=== PATIENT | male | born 1950 | race Caucasian/White ===

== ENCOUNTER 2018-06-25 02:07 | Inpatient (IN) | payer MEDICARE ==
[2018-06-25] VITALS (70 sets, daily range): BP systolic 72–110; BP diastolic 44–72; Ht 172.7 cm; Wt 84.3 kg
[~2018-06-25] VITALS: Ht 172.7 cm; Wt 84.3 kg
[2018-06-25 02:45] LABS: BASOPHILS 0.1 % (0-2); EOSINOPHILS 0 % (0-7); HEMATOCRIT 29.7 % (42.0-54.0); HEMOGLOBIN 9.9 g/dL (13.5-17.5); IMMATURE GRANULOCYTES 0.5 % (0-5); MCH 33.4 pg (26.0-34.0); MCHC 33.3 g/dL (31.0-37.0); MCV 100.3 fL (80.0-100.0); MEAN PLATELET VOLUME 10.7 fL (7.4-10.4); MONOCYTES 6.2 % (2-11); NEUTROPHILS 85.2 % (40-80); PLATELET COUNT 93 10x3/uL (130-400); RBC 2.96 10x6/uL (4.20-6.10); RDW 22.2 % (11.5-14.5); WBC 10.2 10x3/uL (4.8-10.8)
[2018-06-25 02:53] LABS: INR 1.73 (0.85-1.17); PROTIME 19.6 SECONDS (11.6-15.0)
[2018-06-25 02:55] LABS: ALBUMIN 2.2 g/dL (3.4-5.0); ALKALINE PHOSPHATASE 66 U/L (46-116); ALT (SGPT) 124 U/L (10-68); BILIRUBIN - TOTAL 3.88 mg/dL (0.2-1.3); CALC OSMOLALITY 293 mosm/kg (275-300); CALCIUM 8.1 mg/dL (8.5-10.1); CARBON DIOXIDE 32.4 mmol/L (21.0-32.0); CHLORIDE - SERUM 97 mmol/L (98-107); CREATININE - SERUM 2.6 mg/dL (0.6-1.3); GLUCOSE 128 mg/dL (74-106); POTASSIUM - SERUM 3.4 mmol/L (3.5-5.1); PROTEIN - SERUM 5.6 g/dL (6.4-8.2); SODIUM 142 mmol/L (136-145); UREA NITROGEN 39 mg/dL (7-18); eGFR NON AFRICAN AMERICAN 26 mL/min (90-120)
[2018-06-25 03:04] LABS: PLATELET ESTIMATE DECREASED
[2018-06-25 03:14] LABS: CKMB 14.6 U/L (0.0-3.6); CREATINE KINASE 1826 UL (21-232)
[2018-06-25 05:36] LABS: HEMATOCRIT 28.3 % (42.0-54.0); HEMOGLOBIN 9.5 g/dL (13.5-17.5)
[2018-06-25 10:11] LABS: BASOPHILS 0.1 % (0-2); EOSINOPHILS 0 % (0-7); HEMOGLOBIN 9.5 g/dL (13.5-17.5); IMMATURE GRANULOCYTES 0.5 % (0-5); LYMPHOCYTES 13.1 % (15-50); MCH 33.7 pg (26.0-34.0); MCHC 33.9 g/dL (31.0-37.0); MCV 99.3 fL (80.0-100.0); MEAN PLATELET VOLUME 10.6 fL (7.4-10.4); MONOCYTES 8.1 % (2-11); NEUTROPHILS 78.2 % (40-80); PLATELET COUNT 93 10x3/uL (130-400); RBC 2.82 10x6/uL (4.20-6.10)
[2018-06-25 10:53] LABS: WBC 13.2 10x3/uL (4.8-10.8)
--- NOTE | 2018-06-25 19:56 | MORECARE ---
CASE MANAGEMENT DISCHARGE SUMMARY PATIENT: VARUN WEEKS UNIT: [id number] ADM DATE: 06/25/18 AGE: 67 : 51 SEX: M ROOM/BED: D.2303 AUTHOR: CHIARA SEE PHYSICIAN: REFERRING PHYSICIAN: SHANTHI ALICEA MD DATE OF SERVICE: 06/25/18 Discharge Plan Patient Name: VARUN WEEKS [facility] [facility] 1950 Planned Disposition: Home Anticipated Discharge Date: Discharge Date: Expected LOS: Initial Reviewer: [email or web address] Initial Review Date: 06/25/2018 Generated: 06/25/18 8:55 pm DCPIA - Discharge Planning Initial Assessment Updated by [email or web address]: Abena Marquez on 06/25/18 7:53 pm * Is the patient Alert and Oriented? Yes * How many steps to enter\exit or inside your home? * PCP NO PCP * Pharmacy [facility] * Preadmission Environment Home Alone * ADLs Independent * Equipment Walker * Other Equipment CANE * List name and contact numbers for known caregivers / representatives who currently or will assist patient after discharge: MASOOD WEEKS- EX- [phone] * Verbal permission to speak to the caregivers and representatives has been obtained from the patient. Yes * Community resources currently utilized None * Additional services required to return to the preadmission environment? No * Can the patient safely return to the preadmission environment? Yes * Has this patient been hospitalized within the prior 30 days at any hospital? No Patient Name: VARUN WEEKS Page 09742 at 195 All edits/amendments must be made on the electronic document DICTATION DATE: 06/25/181954 CARPENTER'S HELPER: ELODIA 06/25/181954 RPT#: [id number] DC DATE: STATUS: ADM IN [facility] [address] [place] [address] END OF REPORT
--- NOTE | 2018-06-25 20:02 | MORECARE ---
CASE MANAGEMENT DISCHARGE SUMMARY PATIENT: VARUN WEEKS UNIT: [id number] ADM DATE: 06/25/18 AGE: 67 : 51 SEX: M ROOM/BED: D.2303 AUTHOR: ESA,DOC PHYSICIAN: REFERRING PHYSICIAN: SHANTHI ALICEA MD DATE OF SERVICE: 06/25/18 Discharge Plan Patient Name: VARUN WEEKS Facility: [facility]:[place] : 1950 Planned Disposition: Home Anticipated Discharge Date: Discharge Date: Expected LOS: Initial Reviewer: [email or web address] Initial Review Date: 06/25/2018 Generated: 06/25/18 9:02 pm Comments DCP- Discharge Planning Updated by [email or web address]: Abena Marquez on 06/25/18 6:[address] Patient Name: VARUN WEEKS Admission Status: ER Accout number: [id number] Admission Date: 06-25-2018 : 1950 Admission Diagnosis: Attending: DEANNE, Current LOS: 1 Anticipated DC Date: Planned Disposition: Home Primary Insurance: MEDICARE A & B Discharge Planning Comments:CM met with patient and ex- (Masood) at bedside. Patient states he lives at home alone. He plans on returning to his home upon discharge. He states he feels safe at his home. He states he will have family drive him home upon discharge. Masood states that he may need to stay with her upon discharge and the patient is currently not agreeing. He denies any discharge needs at this time. CM will continue to follow and assist as needed with discharge planning / needs. Associate Field Service Engineer: Abena Marquez DCPIA - Discharge Planning Initial Assessment Updated by [email or web address]: Abena Marquez on 06/25/18 7:53 pm * Is the patient Alert and Oriented? Yes * How many steps to enter\exit or inside your home? * PCP NO PCP * Pharmacy [facility] * Preadmission Environment Home Alone * ADLs Independent * Equipment Walker * Other Equipment CANE * List name and contact numbers for known caregivers / representatives who currently or will assist patient after discharge: MASOOD WEEKS- EX- [phone] * Verbal permission to speak to the caregivers and representatives has been obtained from the patient. Yes * Community resources currently utilized None * Additional services required to return to the preadmission environment? No * Can the patient safely return to the preadmission environment? Yes * Has this patient been hospitalized within the prior 30 days at any hospital? No Last DP export: 06/25/18 6:55 pm Patient Name: VARUN WEEKS Page 58759 at 2002 All edits/amendments must be made on the electronic document DICTATION DATE: 06/25/182000 COMPUTER SYSTEM VALIDATION SPECIALIST: ELODIA 06/25/182000 RPT#: [id number] DC DATE: STATUS: ADM IN [facility] [address] [place] [address] END OF REPORT
[2018-06-25 23:01] LABS: % SATURATION 92 % (15-55); IRON 89 ug/dl (35-150); TOTAL IRON BIND CAPACITY 96 ug/dl (260-445)
[2018-06-25 23:02] LABS: UNSAT IRON BIND CAPACITY 7 ug/dl (150-375)
[2018-06-26] VITALS (29 sets, daily range): BP systolic 94–148; BP diastolic 47–88
[2018-06-26 04:53] LABS: BASOPHILS 0.2 % (0-2); EOSINOPHILS 1.1 % (0-7); HEMATOCRIT 23.5 % (42.0-54.0); HEMOGLOBIN 7.9 g/dL (13.5-17.5); IMMATURE GRANULOCYTES 0.5 % (0-5); LYMPHOCYTES 16.7 % (15-50); MCH 33.3 pg (26.0-34.0); MCHC 33.6 g/dL (31.0-37.0); MCV 99.2 fL (80.0-100.0); MEAN PLATELET VOLUME 10.6 fL (7.4-10.4); NEUTROPHILS 73.5 % (40-80); PLATELET COUNT 77 10x3/uL (130-400); RBC 2.37 10x6/uL (4.20-6.10)
[2018-06-26 05:00] LABS: INR 1.59 (0.85-1.17); PROTIME 18.4 SECONDS (11.6-15.0)
[2018-06-26 05:03] LABS: WBC 5.5 10x3/uL (4.8-10.8)
[2018-06-26 05:36] LABS: ALBUMIN 2.1 g/dL (3.4-5.0); ALKALINE PHOSPHATASE 53 U/L (46-116); AMYLASE - SERUM 44 U/L (25-115); CALCIUM 7.1 mg/dL (8.5-10.1); CARBON DIOXIDE 29.8 mmol/L (21.0-32.0); CHLORIDE - SERUM 106 mmol/L (98-107); CKMB 2.9 U/L (0.0-3.6); LIPASE 219 U/L (73-393); PRE-ALBUMIN 11.5 mg/dL (18.0-35.7); PROTEIN - SERUM 5.1 g/dL (6.4-8.2); SODIUM 144 mmol/L (136-145); UREA NITROGEN 36 mg/dL (7-18)
[2018-06-26 05:38] LABS: ALT (SGPT) 193 U/L (10-68); CALC OSMOLALITY 293 mosm/kg (275-300); CREATINE KINASE 754 UL (21-232); CREATININE - SERUM 1.1 mg/dL (0.6-1.3); GLUCOSE 77 mg/dL (74-106); PHOSPHOROUS 1.4 mg/dL (2.5-4.9); POTASSIUM - SERUM 2.8 mmol/L (3.5-5.1); eGFR NON AFRICAN AMERICAN 71 mL/min (90-120)
[2018-06-26 15:35] LABS: HEMATOCRIT 30.7 % (42.0-54.0); HEMOGLOBIN 10.3 g/dL (13.5-17.5)
[2018-06-26 16:06] LABS: POTASSIUM - SERUM 3.4 mmol/L (3.5-5.1)
[2018-06-26 16:07] LABS: PHOSPHOROUS 1.3 mg/dL (2.5-4.9)
[2018-06-26 23:44] LABS: HEMATOCRIT 31.4 % (42.0-54.0); HEMOGLOBIN 10.7 g/dL (13.5-17.5)
[2018-06-27] VITALS (24 sets, daily range): BP systolic 17–133; BP diastolic 56–91
[2018-06-27 04:32] LABS: BASOPHILS 0 % (0-2); EOSINOPHILS 0.3 % (0-7); HEMATOCRIT 30.3 % (42.0-54.0); HEMOGLOBIN 10.1 g/dL (13.5-17.5); IMMATURE GRANULOCYTES 1.4 % (0-5); LYMPHOCYTES 11.4 % (15-50); MCH 31.2 pg (26.0-34.0); MCHC 33.3 g/dL (31.0-37.0); MEAN PLATELET VOLUME 10.3 fL (7.4-10.4); MONOCYTES 8.3 % (2-11); NEUTROPHILS 78.6 % (40-80); RDW 27.2 % (11.5-14.5)
[2018-06-27 04:53] LABS: MCV 93.5 fL (80.0-100.0); PLATELET COUNT 93 10x3/uL (130-400); RBC 3.24 10x6/uL (4.20-6.10); WBC 3.5 10x3/uL (4.8-10.8)
[2018-06-27 04:57] LABS: INR 1.41 (0.85-1.17); PROTIME 16.7 SECONDS (11.6-15.0)
[2018-06-27 05:22] LABS: ALBUMIN 2.4 g/dL (3.4-5.0); ALKALINE PHOSPHATASE 70 U/L (46-116); ALT (SGPT) 185 U/L (10-68); BILIRUBIN - TOTAL 1.79 mg/dL (0.2-1.3); CARBON DIOXIDE 24.7 mmol/L (21.0-32.0); CHLORIDE - SERUM 109 mmol/L (98-107); CKMB 1.5 U/L (0.0-3.6); POTASSIUM - SERUM 3.3 mmol/L (3.5-5.1); SODIUM 145 mmol/L (136-145)
[2018-06-27 05:25] LABS: CALC OSMOLALITY 293 mosm/kg (275-300); CALCIUM 6.9 mg/dL (8.5-10.1); CREATINE KINASE 313 UL (21-232); CREATININE - SERUM 0.8 mg/dL (0.6-1.3); GLUCOSE 127 mg/dL (74-106); MAGNESIUM - SERUM 2.6 mg/dL (1.8-2.4); PHOSPHOROUS 2.4 mg/dL (2.5-4.9); UREA NITROGEN 20 mg/dL (7-18); eGFR NON AFRICAN AMERICAN > 90 mL/min (90-120)
[2018-06-27 05:26] LABS: PLATELET ESTIMATE DECREASED
[2018-06-27 09:17] LABS: FOLATE (FOLIC ACID) - SERUM 15.3 ng/mL (>3.0)
[2018-06-27 11:19] LABS: HEPATITIS C ANTIBODY <0.1 S/CO RAT (0.0-0.9)
[2018-06-27 11:41] LABS: UDS - AMPHET NEGATIVE QUAL (NEGATIVE); UDS - BARB NEGATIVE QUAL (NEGATIVE); UDS - BENZO POSITIVE QUAL (NEGATIVE); UDS - COCAINE NEGATIVE QUAL (NEGATIVE); UDS - OPIATE NEGATIVE QUAL (NEGATIVE); UDS - PCP NEGATIVE QUAL (NEGATIVE); UDS - THC NEGATIVE QUAL (NEGATIVE)
[2018-06-27 12:09] LABS: APPEARANCE HAZY (CLEAR); BACTERIA FEW /hpf (NONE SEEN); BILIRUBIN NEGATIVE (NEGATIVE); COLOR DK YELLOW (YELLOW); EPITHELIAL CELLS 0-5 /hpf (0-5); GLUCOSE 250 mg/dL (NEGATIVE); KETONE MODERATE mg/dL (NEGATIVE); MUCUS <1+ /lpf (NONE SEEN); NITRITE NEGATIVE (NEGATIVE); PROTEIN TRACE mg/dL (NEGATIVE); RED CELLS - URINE 0-5 /hpf (0-5); WHITE CELLS - URINE 0-5 /hpf (0-5)
[2018-06-28] VITALS (23 sets, daily range): BP systolic 93–135; BP diastolic 55–111
[2018-06-28 03:23] LABS: BASOPHILS 0.2 % (0-2); EOSINOPHILS 2.1 % (0-7); HEMATOCRIT 31.5 % (42.0-54.0); HEMOGLOBIN 10.6 g/dL (13.5-17.5); IMMATURE GRANULOCYTES 1.3 % (0-5); LYMPHOCYTES 12.5 % (15-50); MCH 31.2 pg (26.0-34.0); MCHC 33.7 g/dL (31.0-37.0); MCV 92.6 fL (80.0-100.0); MEAN PLATELET VOLUME 10.1 fL (7.4-10.4); MONOCYTES 13.1 % (2-11); NEUTROPHILS 70.8 % (40-80); PLATELET COUNT 95 10x3/uL (130-400); RDW 26.4 % (11.5-14.5)
[2018-06-28 03:25] LABS: WBC 5.6 10x3/uL (4.8-10.8)
[2018-06-28 03:30] LABS: INR 1.29 (0.85-1.17); PROTIME 15.6 SECONDS (11.6-15.0)
[2018-06-28 03:35] LABS: ALBUMIN 2.2 g/dL (3.4-5.0); ALKALINE PHOSPHATASE 94 U/L (46-116); ALT (SGPT) 146 U/L (10-68); BILIRUBIN - TOTAL 1.57 mg/dL (0.2-1.3); CARBON DIOXIDE 27.9 mmol/L (21.0-32.0); CHLORIDE - SERUM 112 mmol/L (98-107); CREATININE - SERUM 0.9 mg/dL (0.6-1.3); GLUCOSE 124 mg/dL (74-106); PROTEIN - SERUM 5.7 g/dL (6.4-8.2); SODIUM 145 mmol/L (136-145); eGFR NON AFRICAN AMERICAN 90 mL/min (90-120)
[2018-06-28 03:38] LABS: CALC OSMOLALITY 288 mosm/kg (275-300); CALCIUM 6.9 mg/dL (8.5-10.1); POTASSIUM - SERUM 2.8 mmol/L (3.5-5.1); UREA NITROGEN 11 mg/dL (7-18)
[2018-06-29] VITALS (14 sets, daily range): BP systolic 91–156; BP diastolic 57–92
[2018-06-29 06:09] LABS: BASOPHILS 0.4 % (0-2); EOSINOPHILS 4.1 % (0-7); HEMATOCRIT 33.8 % (42.0-54.0); HEMOGLOBIN 11.2 g/dL (13.5-17.5); IMMATURE GRANULOCYTES 2.4 % (0-5); LYMPHOCYTES 16.9 % (15-50); MCH 31.5 pg (26.0-34.0); MCHC 33.1 g/dL (31.0-37.0); MEAN PLATELET VOLUME 10.8 fL (7.4-10.4); MONOCYTES 15.4 % (2-11); NEUTROPHILS 60.8 % (40-80); RBC 3.56 10x6/uL (4.20-6.10); WBC 4.7 10x3/uL (4.8-10.8)
[2018-06-29 06:25] LABS: MCV 94.9 fL (80.0-100.0); PLATELET COUNT 72 10x3/uL (130-400)
[2018-06-29 06:38] LABS: ALBUMIN 2.1 g/dL (3.4-5.0); ALKALINE PHOSPHATASE 106 U/L (46-116); ALT (SGPT) 110 U/L (10-68); BILIRUBIN - TOTAL 1.41 mg/dL (0.2-1.3); C-REACTIVE PROTEIN 4.7 mg/dL (0.0-0.9); CALC OSMOLALITY 279 mosm/kg (275-300); CALCIUM 7.2 mg/dL (8.5-10.1); CHLORIDE - SERUM 109 mmol/L (98-107); CREATINE KINASE 123 UL (21-232); CREATININE - SERUM 0.7 mg/dL (0.6-1.3); GLUCOSE 105 mg/dL (74-106); POTASSIUM - SERUM 3.7 mmol/L (3.5-5.1); PROTEIN - SERUM 5.8 g/dL (6.4-8.2); SODIUM 141 mmol/L (136-145); UREA NITROGEN 11 mg/dL (7-18); eGFR NON AFRICAN AMERICAN > 90 mL/min (90-120)
[2018-06-29 06:39] LABS: PHOSPHOROUS 0.5 mg/dL (2.5-4.9)
[2018-06-29 07:22] LABS: INR 1.95 (0.85-1.17); PROTIME 21.5 SECONDS (11.6-15.0)
[2018-06-30 00:20] VITALS: BP 126/67
[2018-06-30 00:29] VITALS: BP 143/74
[2018-06-30 04:51] LABS: BASOPHILS 0.2 % (0-2); EOSINOPHILS 2.4 % (0-7); HEMATOCRIT 33.6 % (42.0-54.0); IMMATURE GRANULOCYTES 3.6 % (0-5); LYMPHOCYTES 16.4 % (15-50); MCH 31.3 pg (26.0-34.0); MCHC 32.7 g/dL (31.0-37.0); MCV 95.5 fL (80.0-100.0); MEAN PLATELET VOLUME 10.9 fL (7.4-10.4); MONOCYTES 17.1 % (2-11); NEUTROPHILS 60.3 % (40-80); RBC 3.52 10x6/uL (4.20-6.10); RDW 25.8 % (11.5-14.5); WBC 4.5 10x3/uL (4.8-10.8)
[2018-06-30 04:56] LABS: PLATELET COUNT 94 10x3/uL (130-400)
[2018-06-30 05:30] LABS: ALBUMIN 1.8 g/dL (3.4-5.0); ALKALINE PHOSPHATASE 94 U/L (46-116); BILIRUBIN - TOTAL 1.17 mg/dL (0.2-1.3); CALC OSMOLALITY 275 mosm/kg (275-300); CALCIUM 7.1 mg/dL (8.5-10.1); CARBON DIOXIDE 21.6 mmol/L (21.0-32.0); CHLORIDE - SERUM 107 mmol/L (98-107); CREATININE - SERUM 0.7 mg/dL (0.6-1.3); GLUCOSE 104 mg/dL (74-106); INR 1.32 (0.85-1.17); MAGNESIUM - SERUM 1.8 mg/dL (1.8-2.4); PLATELET ESTIMATE DECREASED; POTASSIUM - SERUM 3.9 mmol/L (3.5-5.1); PROTEIN - SERUM 5.5 g/dL (6.4-8.2); PROTIME 15.8 SECONDS (11.6-15.0); SODIUM 138 mmol/L (136-145); UREA NITROGEN 12 mg/dL (7-18); eGFR NON AFRICAN AMERICAN > 90 mL/min (90-120)
[2018-06-30 05:35] LABS: ALT (SGPT) 77 U/L (10-68); PHOSPHOROUS 1.2 mg/dL (2.5-4.9)
[2018-06-30 05:56] VITALS: BP 142/70
[2018-06-30 09:13] VITALS: BP 126/57
[2018-06-30 18:29] VITALS: BP 136/59
[2018-06-30 20:38] VITALS: BP 137/69
[2018-07-01] VITALS (7 sets, daily range): BP systolic 93–149; BP diastolic 47–84
[2018-07-01 05:36] LABS: BASOPHILS 0.3 % (0-2); EOSINOPHILS 0.8 % (0-7); HEMATOCRIT 31.8 % (42.0-54.0); HEMOGLOBIN 10.5 g/dL (13.5-17.5); IMMATURE GRANULOCYTES 1.8 % (0-5); LYMPHOCYTES 11.9 % (15-50); MCV 93.8 fL (80.0-100.0); MEAN PLATELET VOLUME 11.1 fL (7.4-10.4); MONOCYTES 13.3 % (2-11); NEUTROPHILS 71.9 % (40-80); RBC 3.39 10x6/uL (4.20-6.10); RDW 25.5 % (11.5-14.5)
[2018-07-01 05:38] LABS: PLATELET COUNT 121 10x3/uL (130-400); WBC 7.2 10x3/uL (4.8-10.8)
[2018-07-01 05:44] LABS: INR 1.31 (0.85-1.17); PROTIME 15.7 SECONDS (11.6-15.0)
[2018-07-01 06:10] LABS: ALKALINE PHOSPHATASE 87 U/L (46-116); ALT (SGPT) 63 U/L (10-68); BILIRUBIN - TOTAL 1.25 mg/dL (0.2-1.3); C-REACTIVE PROTEIN 4.6 mg/dL (0.0-0.9); CALC OSMOLALITY 279 mosm/kg (275-300); CALCIUM 7.4 mg/dL (8.5-10.1); CARBON DIOXIDE 21.6 mmol/L (21.0-32.0); CHLORIDE - SERUM 109 mmol/L (98-107); GLUCOSE 103 mg/dL (74-106); MAGNESIUM - SERUM 1.8 mg/dL (1.8-2.4); POTASSIUM - SERUM 3.9 mmol/L (3.5-5.1); PRO BNP 720 pg/mL (0-125); PROTEIN - SERUM 5.6 g/dL (6.4-8.2); SODIUM 141 mmol/L (136-145); UREA NITROGEN 11 mg/dL (7-18); eGFR NON AFRICAN AMERICAN 79 mL/min (90-120)
[2018-07-01 06:19] LABS: PHOSPHOROUS 1.2 mg/dL (2.5-4.9)
[2018-07-02 03:39] VITALS: BP 137/61
[2018-07-02 07:05] LABS: BASOPHILS 0.3 % (0-2); EOSINOPHILS 0.7 % (0-7); HEMATOCRIT 31.9 % (42.0-54.0); HEMOGLOBIN 10.6 g/dL (13.5-17.5); IMMATURE GRANULOCYTES 1.4 % (0-5); LYMPHOCYTES 10.5 % (15-50); MCH 31.8 pg (26.0-34.0); MCHC 33.2 g/dL (31.0-37.0); MEAN PLATELET VOLUME 11.6 fL (7.4-10.4); NEUTROPHILS 75.1 % (40-80); PLATELET COUNT 137 10x3/uL (130-400); RBC 3.33 10x6/uL (4.20-6.10); RDW 25.7 % (11.5-14.5); WBC 7.1 10x3/uL (4.8-10.8)
[2018-07-02 07:13] LABS: MCV 95.8 fL (80.0-100.0)
[2018-07-02 08:53] LABS: ALBUMIN 1.7 g/dL (3.4-5.0); ALKALINE PHOSPHATASE 79 U/L (46-116); ALT (SGPT) 48 U/L (10-68); BILIRUBIN - TOTAL 1.07 mg/dL (0.2-1.3); CALC OSMOLALITY 273 mosm/kg (275-300); CARBON DIOXIDE 19.7 mmol/L (21.0-32.0); CHLORIDE - SERUM 107 mmol/L (98-107); CREATININE - SERUM 0.6 mg/dL (0.6-1.3); GLUCOSE 82 mg/dL (74-106); MAGNESIUM - SERUM 1.7 mg/dL (1.8-2.4); POTASSIUM - SERUM 3.5 mmol/L (3.5-5.1); PROTEIN - SERUM 5.4 g/dL (6.4-8.2); SODIUM 138 mmol/L (136-145); UREA NITROGEN 10 mg/dL (7-18); eGFR NON AFRICAN AMERICAN > 90 mL/min (90-120)
[2018-07-02 11:33] VITALS: BP 150/72
[2018-07-02 17:16] VITALS: BP 126/66
[2018-07-02 19:55] VITALS: BP 163/90
[2018-07-02 23:55] VITALS: BP 137/74
[2018-07-03 03:30] VITALS: BP 154/78
[2018-07-03 06:48] LABS: ALBUMIN 1.9 g/dL (3.4-5.0); ALKALINE PHOSPHATASE 86 U/L (46-116); ALT (SGPT) 46 U/L (10-68); BILIRUBIN - TOTAL 1.06 mg/dL (0.2-1.3); CALC OSMOLALITY 280 mosm/kg (275-300); CARBON DIOXIDE 20.8 mmol/L (21.0-32.0); CHLORIDE - SERUM 109 mmol/L (98-107); CREATININE - SERUM 0.7 mg/dL (0.6-1.3); GLUCOSE 79 mg/dL (74-106); PHOSPHOROUS 1.9 mg/dL (2.5-4.9); POTASSIUM - SERUM 3.5 mmol/L (3.5-5.1); PROTEIN - SERUM 5.2 g/dL (6.4-8.2); SODIUM 142 mmol/L (136-145); UREA NITROGEN 10 mg/dL (7-18); eGFR NON AFRICAN AMERICAN > 90 mL/min (90-120)
[2018-07-03 07:23] LABS: BASOPHILS 0.4 % (0-2); EOSINOPHILS 0.9 % (0-7); HEMATOCRIT 32.4 % (42.0-54.0); HEMOGLOBIN 10.7 g/dL (13.5-17.5); IMMATURE GRANULOCYTES 0.8 % (0-5); LYMPHOCYTES 10.3 % (15-50); MCH 31.8 pg (26.0-34.0); MCV 96.4 fL (80.0-100.0); MEAN PLATELET VOLUME 11.6 fL (7.4-10.4); MONOCYTES 9.8 % (2-11); NEUTROPHILS 77.8 % (40-80); RBC 3.36 10x6/uL (4.20-6.10); RDW 25.9 % (11.5-14.5)
[2018-07-03 07:37] LABS: PLATELET COUNT 167 10x3/uL (130-400)
[2018-07-03 09:00] VITALS: BP 136/76
[2018-07-03 12:17] VITALS: BP 107/76
--- NOTE | 2018-07-03 16:22 | MORECARE ---
CASE MANAGEMENT DISCHARGE SUMMARY PATIENT: VARUN WEEKS UNIT: [id number] ADM DATE: 06/25/18 AGE: 67 : 51 SEX: M ROOM/BED: D.2105 AUTHOR: ESA,DOC PHYSICIAN: REFERRING PHYSICIAN: SHANTHI ALICEA MD DATE OF SERVICE: 07/03/18 Discharge Plan Patient Name: VARUN WEEKS Facility: [facility]:[place] : 1950 Planned Disposition: Fci Facility Anticipated Discharge Date: Discharge Date: Expected LOS: Initial Reviewer: [email or web address] Initial Review Date: 06/25/2018 Generated: 07/03/18 5:22 pm DCP- Discharge Planning Updated by [email or web address]: Abena Marquez on 06/25/18 6:[address] Patient Name: VARUN WEEKS Admission Status: ER Accout number: [id number] Admission Date: 06-25-2018 : 1950 Admission Diagnosis: Attending: DEANNE, Current LOS: 1 Anticipated DC Date: Planned Disposition: Home Primary Insurance: MEDICARE A & B Discharge Planning Comments:CM met with patient and ex- (Masood) at bedside. Patient states he lives at home alone. He plans on returning to his home upon discharge. He states he feels safe at his home. He states he will have family drive him home upon discharge. Masood states that he may need to stay with her upon discharge and the patient is currently not agreeing. He denies any discharge needs at this time. CM will continue to follow and assist as needed with discharge planning / needs. Durable Medical Equipment Technician: Abena Marquez DCPIA - Discharge Planning Initial Assessment Updated by [email or web address]: Abena Marquez on 06/25/18 7:53 pm * Is the patient Alert and Oriented? Yes * How many steps to enter\exit or inside your home? * PCP NO PCP * Pharmacy [facility] * Preadmission Environment Home Alone * ADLs Independent * Equipment Walker * Other Equipment CANE * List name and contact numbers for known caregivers / representatives who currently or will assist patient after discharge: MASOOD WEEKS- EX- [phone] * Verbal permission to speak to the caregivers and representatives has been obtained from the patient. Yes * Community resources currently utilized None * Additional services required to return to the preadmission environment? No * Can the patient safely return to the preadmission environment? Yes * Has this patient been hospitalized within the prior 30 days at any hospital? No Last DP export: 06/25/18 7:02 pm Patient Name: VARUN WEEKS Page 59824 at 1622 All edits/amendments must be made on the electronic document DICTATION DATE: 07/03/181621 ASSURANCE MANAGER: ELODIA 07/03/181621 RPT#: [id number] DC DATE: STATUS: ADM IN [facility] [address] [place] [address] END OF REPORT
--- NOTE | 2018-07-03 16:31 | MORECARE ---
CASE MANAGEMENT DISCHARGE SUMMARY PATIENT: VARUN WEEKS UNIT: [id number] ADM DATE: 06/25/18 AGE: 67 : 51 SEX: M ROOM/BED: D.2105 AUTHOR: ESA,DOC PHYSICIAN: REFERRING PHYSICIAN: SHANTHI ALICEA MD DATE OF SERVICE: 07/03/18 Discharge Plan Patient Name: VARUN WEEKS Facility: [facility]:[place] : 1950 Planned Disposition: Shelter Facility Anticipated Discharge Date: Discharge Date: Expected LOS: Initial Reviewer: [email or web address] Initial Review Date: 06/25/2018 Generated: 07/03/18 5:31 pm Comments DCP- Discharge Planning Updated by [email or web address]: Jakob Carr on 07/03/18 3:[address] Patient Name: VARUN WEEKS Encounter No: [id number] : 1950 Primary Insurance: MEDICARE A & B Anticipated DC Date: Planned Disposition: Shelter Facility External Planned Provider: [facility] OR [facility] IN [place], MEDICARE REHAB BED DCP follow-up note: CM RECEIVED ORDER FOR INPATIENT REHAB PRESCREEN. CM SPOKE TO PT IN ROOM WHO INFORMED CM THAT HIS EX WANTS HIM CLOSER TO HER AND THAT CM SHOULD CALL HIS SON, SHIRA, AND DO WHAT SHIRA DIRECTS. IMPORTANT MESSAGE FROM MEDICARE PROVIDED AND EXPLAINED. CM CALLED ANGELICA WEEKS, ; THIS NUMBER BELONGS TO PATIENT, NOT HIS EX . CM CALLED SHIRA WEEKS, , WHO INFORMED CM THAT THE PLAN IS FOR PT TO GO CLOSER TO [place] SO THAT ANGELICA WEESK CAN CHECK AND ASSIST WITH PT'S NEEDS. SHIRA WILL OBTAIN SHAHRAM PINEDA AND HAVE HER CALL CM WITH FACILITY CHOICES. SHIRA CALLED CM AT ABOUT 1545 HOURS, INFORMED CM THAT THE TWO FACILITY CHOICES ARE [facility] AND [facility]. CHOICE FORM COMPLETED. CM NOTIFIED BIANKA OF INPATIENT REHAB OF PT AND FAMILY DECISION FOR GROUP HOME REHAB CLOSER TO FAMILY. CM TO SEND REFERRALS TO [facility] AND [facility] SOON POSSIBLE. Jakob Carr, JAKOB CARR, CASE MANAGEMENT DCP- Discharge Planning Updated by [email or web address]: Abena Marquez on 06/25/18 6:[address] Patient Name: VARUN WEEKS Admission Status: ER Accout number: [id number] Admission Date: 06-25-2018 : 1950 Admission Diagnosis: Attending: DEANNE, Current LOS: 1 Anticipated DC Date: Planned Disposition: Home Primary Insurance: MEDICARE A & B Discharge Planning Comments:CM met with patient and ex- (Angelica) at bedside. Patient states he lives at home alone. He plans on returning to his home upon discharge. He states he feels safe at his home. He states he will have family drive him home upon discharge. Angelica states that he may need to stay with her upon discharge and the patient is currently not agreeing. He denies any discharge needs at this time. CM will continue to follow and assist as needed with discharge planning / needs. Fine Artist: Abena Alma DCPIA - Discharge Planning Initial Assessment Updated by [email or web address]: Jakob Carr on 07/03/18 4:26 pm * Is the patient Alert and Oriented? Yes * How many steps to enter\exit or inside your home? * PCP NO PCP * Pharmacy [facility] * Preadmission Environment Home Alone * ADLs Independent * Equipment Walker * Other Equipment CANE * List name and contact numbers for known caregivers / representatives who currently or will assist patient after discharge: ANGELICA WEEKS- EX- [phone] SHIRA WEEKS - SON, * Verbal permission to speak to the caregivers and representatives has been obtained from the patient. Yes * Community resources currently utilized None * Additional services required to return to the preadmission environment? No * Can the patient safely return to the preadmission environment? Yes * Has this patient been hospitalized within the prior 30 days at any hospital? No Coverage Notice Reviewer: [email or web address] Carr Notice Issued Date-Time: 07/03/2018 11:00 Notice Type: IM Discharge Notice Notice Delivered To: Patient Relationship to Patient: Card Maker Name: Delivery Method: HAND - Hand Delivered Sarah Days: Prior Verbal Notification: Recipient Understood Notice: Yes Recipient Signature: Med Rec Note Co-signed by Attending: Coverage Notice Comment: Reviewer: [email or web address] Carr Notice Issued Date-Time: 07/03/2018 15:45 Notice Type: IM Discharge Notice Notice Delivered To: Family Member Relationship to Patient: Son Card Maker Name: SHIRA WEEKS Delivery Method: HAND - Hand Delivered Sarah Days: Prior Verbal Notification: Recipient Understood Notice: Yes Recipient Signature: Med Rec Note Co-signed by Attending: Coverage Notice Comment: [facility] Last DP export: 07/03/18 3:22 p Patient Name: VARUN WEEKS Page 32103 at 1631 All edits/amendments must be made on the electronic document DICTATION DATE: 07/03/18 1630 HEMSTITCHER: ELODIA 07/03/18 1630 RPT#: [id number] DC DATE: STATUS: ADM IN [facility] [address] [place] [address] END OF REPORT
[2018-07-03 17:26] VITALS: BP 155/80
[2018-07-03 18:11] VITALS: BP 107/76
[2018-07-03 20:00] VITALS: BP 115/64
[2018-07-04 05:00] VITALS: BP 98/70
[2018-07-04 06:21] LABS: BASOPHILS 0.4 % (0-2); HEMATOCRIT 33.1 % (42.0-54.0); IMMATURE GRANULOCYTES 0.6 % (0-5); LYMPHOCYTES 11.3 % (15-50); MCH 31.2 pg (26.0-34.0); MCHC 33.2 g/dL (31.0-37.0); MCV 93.8 fL (80.0-100.0); MEAN PLATELET VOLUME 11.2 fL (7.4-10.4); MONOCYTES 8.2 % (2-11); NEUTROPHILS 78.5 % (40-80); PLATELET COUNT 186 10x3/uL (130-400); RBC 3.53 10x6/uL (4.20-6.10); RDW 25.7 % (11.5-14.5); WBC 8.2 10x3/uL (4.8-10.8)
[2018-07-04 06:32] LABS: ALKALINE PHOSPHATASE 98 U/L (46-116); ALT (SGPT) 45 U/L (10-68); BILIRUBIN - TOTAL 1.03 mg/dL (0.2-1.3); CALC OSMOLALITY 286 mosm/kg (275-300); CALCIUM 7.3 mg/dL (8.5-10.1); CARBON DIOXIDE 25.3 mmol/L (21.0-32.0); CHLORIDE - SERUM 110 mmol/L (98-107); CREATININE - SERUM 0.6 mg/dL (0.6-1.3); GLUCOSE 86 mg/dL (74-106); PHOSPHOROUS 2.1 mg/dL (2.5-4.9); POTASSIUM - SERUM 3.4 mmol/L (3.5-5.1); PROTEIN - SERUM 5.4 g/dL (6.4-8.2); SODIUM 145 mmol/L (136-145); UREA NITROGEN 10 mg/dL (7-18); eGFR NON AFRICAN AMERICAN > 90 mL/min (90-120)
--- NOTE | 2018-07-04 08:37 | MORECARE ---
CASE MANAGEMENT DISCHARGE SUMMARY PATIENT: VARUN WEEKS UNIT: [id number] ADM DATE: 06/25/18 AGE: 67 : 51 SEX: M ROOM/BED: D.2105 AUTHOR: ESA,DOC PHYSICIAN: REFERRING PHYSICIAN: SHANTHI ALICEA MD DATE OF SERVICE: 07/04/18 Discharge Plan Patient Name: VARUN WEEKS Facility: [facility]:[place] : 1950 Planned Disposition: Custodial Facility Anticipated Discharge Date: Discharge Date: Expected LOS: Initial Reviewer: [email or web address] Initial Review Date: 06/25/2018 Generated: 07/04/18 9:37 am Comments DCP- Discharge Planning Updated by [email or web address]: Jakob Carr on 07/03/18 3:[address] Patient Name: VARUN WEEKS Encounter No: [id number] : 1950 Primary Insurance: MEDICARE A & B Anticipated DC Date: Planned Disposition: Custodial Facility External Planned Provider: [facility] IN [place], MEDICARE REHAB BED DCP follow-up note: CM RECEIVED ORDER FOR INPATIENT REHAB PRESCREEN. CM SPOKE TO PT IN ROOM WHO INFORMED CM THAT HIS EX WANTS HIM CLOSER TO HER AND THAT CM SHOULD CALL HIS SON, SHIRA, AND DO WHAT SHIRA DIRECTS. IMPORTANT MESSAGE FROM MEDICARE PROVIDED AND EXPLAINED. CM CALLED ANGELICA WEEKS, ; THIS NUMBER BELONGS TO PATIENT, NOT HIS EX . CM CALLED SHIRA WEEKS, , WHO INFORMED CM THAT THE PLAN IS FOR PT TO GO CLOSER TO [place] SO THAT ANGELICA WEEKS CAN CHECK AND ASSIST WITH PT'S NEEDS. SHIRA WILL OBTAIN SHAHRAM PINEDA AND HAVE HER CALL CM WITH FACILITY CHOICES. SHIRA CALLED CM AT ABOUT 1545 HOURS, INFORMED CM THAT THE TWO FACILITY CHOICES ARE [facility] AND [facility]. CHOICE FORM COMPLETED. CM NOTIFIED BIANKA OF INPATIENT REHAB OF PT AND FAMILY DECISION FOR NURSING HOME REHAB CLOSER TO FAMILY. CM TO SEND REFERRALS TO [facility] AND [facility] AND REHAB SOON POSSIBLE. Jakob Carr, JAKOB CARR, CASE MANAGEMENT DCP- Discharge Planning Updated by [id number]: Abena Marquez on 06/25/18 6:[address] Patient Name: VARUN WEEKS Admission Status: ER Accout number: [id number] Admission Date: 06-25-2018 : 1950 Admission Diagnosis: Attending: DEANNE, Current LOS: 1 Anticipated DC Date: Planned Disposition: Home Primary Insurance: MEDICARE A & B Discharge Planning Comments:CM met with patient and ex- (Angelica) at bedside. Patient states he lives at home alone. He plans on returning to his home upon discharge. He states he feels safe at his home. He states he will have family drive him home upon discharge. Angelica states that he may need to stay with her upon discharge and the patient is currently not agreeing. He denies any discharge needs at this time. CM will continue to follow and assist as needed with discharge planning / needs. Jalousie Installer: Abena Alma DCPIA - Discharge Planning Initial Assessment Updated by [email or web address]: Jakob Carr on 07/03/18 4:26 pm * Is the patient Alert and Oriented? Yes * How many steps to enter\exit or inside your home? * PCP NO PCP * Pharmacy [facility] * Preadmission Environment Home Alone * ADLs Independent * Equipment Walker * Other Equipment CANE * List name and contact numbers for known caregivers / representatives who currently or will assist patient after discharge: ANGELICA WEEKS- EX- [phone] SHIRA WEEKS - SON, * Verbal permission to speak to the caregivers and representatives has been obtained from the patient. Yes * Community resources currently utilized None * Additional services required to return to the preadmission environment? No * Can the patient safely return to the preadmission environment? Yes * Has this patient been hospitalized within the prior 30 days at any hospital? No External Providers External Provider: OTHER-OTHER Next Contact Date: 07/04/2018 Service Request Date: Service Type: Resolution: Reviewer: Comments: Coverage Notice Reviewer: [id number] Berkley Carr Notice Issued Date-Time: 07/03/2018 11:00 Notice Type: IM Discharge Notice Notice Delivered To: Patient Relationship to Patient: Benefits Specialist Name: Delivery Method: HAND - Hand Delivered Sarah Days: Prior Verbal Notification: Recipient Understood Notice: Yes Recipient Signature: Med Rec Note Co-signed by Attending: Coverage Notice Comment: Reviewer: IVELISSE Martinezwell Notice Issued Date-Time: 07/03/2018 15:45 Notice Type: IM Discharge Notice Notice Delivered To: Family Member Relationship to Patient: Son Benefits Specialist Name: SHIRA WEEKS Delivery Method: HAND - Hand Delivered Sarah Days: Prior Verbal Notification: Recipient Understood Notice: Yes Recipient Signature: Med Rec Note Co-signed by Attending: Coverage Notice Comment: [facility] Last DP export: 07/03/18 3:31 p Patient Name: VARUN WEEKS Page 43023 at 0837 All edits/amendments must be made on the electronic document DICTATION DATE: 07/04/18836 MILK POWDER GRINDER: ELODIA 07/04/18836 RPT#: [id number] DC DATE: STATUS: ADM IN [facility] [address] [place] [address] END OF REPORT
--- NOTE | 2018-07-04 08:50 | MORECARE ---
CASE MANAGEMENT DISCHARGE SUMMARY PATIENT: VARUN WEEKS UNIT: [id number] ADM DATE: 06/25/18 AGE: 67 : 51 SEX: M ROOM/BED: D.2105 AUTHOR: ESA,DOC PHYSICIAN: REFERRING PHYSICIAN: SHANTHI ALICEA MD DATE OF SERVICE: 07/04/18 Discharge Plan Patient Name: VARUN WEEKS Facility: [facility]:[place] : 1950 Planned Disposition: Fpc Facility Anticipated Discharge Date: Discharge Date: Expected LOS: Initial Reviewer: [email or web address] Initial Review Date: 06/25/2018 Generated: 07/04/18 9:50 am Comments DCP- Discharge Planning Updated by [email or web address]: Jakob Carr on 07/03/18 3:[address] Patient Name: VARUN WEEKS Encounter No: [id number] : 1950 Primary Insurance: MEDICARE A & B Anticipated DC Date: Planned Disposition: Fpc Facility External Planned Provider: [facility] IN [place], MEDICARE REHAB BED DCP follow-up note: CM RECEIVED ORDER FOR INPATIENT REHAB PRESCREEN. CM SPOKE TO PT IN ROOM WHO INFORMED CM THAT HIS EX WANTS HIM CLOSER TO HER AND THAT CM SHOULD CALL HIS SON, SHIRA, AND DO WHAT SHIRA DIRECTS. IMPORTANT MESSAGE FROM MEDICARE PROVIDED AND EXPLAINED. CM CALLED ANGELICA WEEKS, ; THIS NUMBER BELONGS TO PATIENT, NOT HIS EX . CM CALLED SHIRA WEEKS, , WHO INFORMED CM THAT THE PLAN IS FOR PT TO GO CLOSER TO [place] SO THAT ANGELICA WEEKS CAN CHECK AND ASSIST WITH PT'S NEEDS. SHIRA WILL OBTAIN SHAHRAM PINEDA AND HAVE HER CALL CM WITH FACILITY CHOICES. SHIRA CALLED CM AT ABOUT 1545 HOURS, INFORMED CM THAT THE TWO FACILITY CHOICES ARE [facility] AND [facility]. CHOICE FORM COMPLETED. CM NOTIFIED BIANKA OF INPATIENT REHAB OF PT AND FAMILY DECISION FOR CARE HOME REHAB CLOSER TO FAMILY. CM TO SEND REFERRALS TO [facility] AND [facility] AND REHAB SOON POSSIBLE. Jakob Carr, JAKOB CARR, CASE MANAGEMENT DCP- Discharge Planning Updated by [email or web address]: Abena Marquez on 06/25/18 6:[address] Patient Name: VARUN WEEKS Admission Status: ER Accout number: [id number] Admission Date: 06-25-2018 : 1950 Admission Diagnosis: Attending: DEANNE, Current LOS: 1 Anticipated DC Date: Planned Disposition: Home Primary Insurance: MEDICARE A & B Discharge Planning Comments:CM met with patient and ex- (Angelica) at bedside. Patient states he lives at home alone. He plans on returning to his home upon discharge. He states he feels safe at his home. He states he will have family drive him home upon discharge. Angelica states that he may need to stay with her upon discharge and the patient is currently not agreeing. He denies any discharge needs at this time. CM will continue to follow and assist as needed with discharge planning / needs. Clothes Designer: Abena Alma DCPIA - Discharge Planning Initial Assessment Updated by [email or web address]: Jakob Carr on 07/03/18 4:26 pm * Is the patient Alert and Oriented? Yes * How many steps to enter\exit or inside your home? * PCP NO PCP * Pharmacy [facility] * Preadmission Environment Home Alone * ADLs Independent * Equipment Walker * Other Equipment CANE * List name and contact numbers for known caregivers / representatives who currently or will assist patient after discharge: ANGELICA WEEKS- EX- [phone] SHIRA WEEKS - SON, * Verbal permission to speak to the caregivers and representatives has been obtained from the patient. Yes * Community resources currently utilized None * Additional services required to return to the preadmission environment? No * Can the patient safely return to the preadmission environment? Yes * Has this patient been hospitalized within the prior 30 days at any hospital? No External Providers External Provider: OTHER-OTHER Next Contact Date: 07/04/2018 Service Request Date: Service Type: Resolution: Reviewer: Comments: Coverage Notice Reviewer: [id number] Berkley Carr Notice Issued Date-Time: 07/03/2018 11:00 Notice Type: IM Discharge Notice Notice Delivered To: Patient Relationship to Patient: Bottom Saw Operator Name: Delivery Method: HAND - Hand Delivered Sarah Days: Prior Verbal Notification: Recipient Understood Notice: Yes Recipient Signature: Med Rec Note Co-signed by Attending: Coverage Notice Comment: Reviewer: IVELISSE Martinezwell Notice Issued Date-Time: 07/03/2018 15:45 Notice Type: IM Discharge Notice Notice Delivered To: Family Member Relationship to Patient: Son Bottom Saw Operator Name: SHIRA WEEKS Delivery Method: HAND - Hand Delivered Sarah Days: Prior Verbal Notification: Recipient Understood Notice: Yes Recipient Signature: Med Rec Note Co-signed by Attending: Coverage Notice Comment: [facility] Last DP export: 07/04/18 7:37 a Patient Name: VARUN WEEKS Page 39029 at 0850 All edits/amendments must be made on the electronic document DICTATION DATE: 07/04/18849 PRINCIPAL JAVA SOFTWARE ENGINEER: ELODIA 07/04/18 0850 RPT#: [id number] DC DATE: STATUS: ADM IN [facility] [address] [place] [address] END OF REPORT
--- NOTE | 2018-07-04 08:57 | MORECARE ---
CASE MANAGEMENT DISCHARGE SUMMARY PATIENT: VARUN WEEKS UNIT: [id number] ADM DATE: 06/25/18 AGE: 67 : 51 SEX: M ROOM/BED: D.2105 AUTHOR: ESA,DOC PHYSICIAN: REFERRING PHYSICIAN: SHANTHI ALICEA MD DATE OF SERVICE: 07/04/18 Discharge Plan Patient Name: VARUN WEEKS Facility: [facility]:[place] : 1950 Planned Disposition: Mcfp Facility Anticipated Discharge Date: Discharge Date: Expected LOS: Initial Reviewer: [id number] Initial Review Date: 06/25/2018 Generated: 07/04/18 9:57 am Comments DCP- Discharge Planning Updated by [email or web address]: Jakob Carr on 07/04/18 7:[address] Patient Name: VARUN WEEKS Encounter No: [id number] : 1950 Primary Insurance: MEDICARE A & B Anticipated DC Date: Planned Disposition: Mcfp Facility External Planned Provider: [facility], MEDICARE REHAB BED DCP follow-up note: CM CALLED [facility], , SPOKE TO JACQUELYN AND PROVIDED REFERRAL INFORMATION; CM FAXED REFERRAL TO [phone]. CM CALLED [facility], , PROVIDED REFERRAL INFORMATION; CM FAXED REFERRAL TO [phone]. CM WAITING ADMISSION DETERMINATIONS FROM [facility] IN [place]. DEBORAH Emesron DCP- Discharge Planning Updated by [id number]: Jakob Carr on 07/03/18 3:[address] Patient Name: VARUN WEEKS Encounter No: [id number] : 1950 Primary Insurance: MEDICARE A & B Anticipated DC Date: Planned Disposition: Mcfp Facility External Planned Provider: [facility] IN [place], MEDICARE REHAB BED DCP follow-up note: CM RECEIVED ORDER FOR INPATIENT REHAB PRESCREEN. CM SPOKE TO PT IN ROOM WHO INFORMED CM THAT HIS EX WANTS HIM CLOSER TO HER AND THAT CM SHOULD CALL HIS SON, SHIRA, AND DO WHAT SHIRA DIRECTS. IMPORTANT MESSAGE FROM MEDICARE PROVIDED AND EXPLAINED. CM CALLED ANGELICA WEEKS [phone]; THIS NUMBER BELONGS TO PATIENT, NOT HIS EX . CM CALLED SHIRA WEEKS, , WHO INFORMED CM THAT THE PLAN IS FOR PT TO GO CLOSER TO [place] SO THAT ANGELICA WEEKS CAN CHECK AND ASSIST WITH PT'S NEEDS. SHIRA WILL OBTAIN SHAHRAM PINEDA AND HAVE HER CALL CM WITH FACILITY CHOICES. SHIRA CALLED CM AT ABOUT 1545 HOURS, INFORMED CM THAT THE TWO FACILITY CHOICES ARE [facility] AND [facility]. CHOICE FORM COMPLETED. CM NOTIFIED BIANKA OF INPATIENT REHAB OF PT AND FAMILY DECISION FOR CORRECTION REHAB CLOSER TO FAMILY. CM TO SEND REFERRALS TO [facility] AND REHAB SOON POSSIBLE. Jakob Carr, JAKOB CARR, CASE MANAGEMENT DCP- Discharge Planning Updated by [id number]: Abena Marquez on 06/25/18 6:[address] Patient Name: VARUN WEEKS Admission Status: ER Accout number: [id number] Admission Date: 06-25-2018 : 1950 Admission Diagnosis: Attending: DEANNE, Current LOS: 1 Anticipated DC Date: Planned Disposition: Home Primary Insurance: MEDICARE A & B Discharge Planning Comments:CM met with patient and ex- (Angelica) at bedside. Patient states he lives at home alone. He plans on returning to his home upon discharge. He states he feels safe at his home. He states he will have family drive him home upon discharge. Angelica states that he may need to stay with her upon discharge and the patient is currently not agreeing. He denies any discharge needs at this time. CM will continue to follow and assist as needed with discharge planning / needs. Ripsaw Grader: Abena Marquez DCPIA - Discharge Planning Initial Assessment Updated by [email or web address]: Jakob Carr on 07/03/18 4:26 pm * Is the patient Alert and Oriented? Yes * How many steps to enter\exit or inside your home? * PCP NO PCP * Pharmacy [facility] * Preadmission Environment Home Alone * ADLs Independent * Equipment Walker * Other Equipment CANE * List name and contact numbers for known caregivers / representatives who currently or will assist patient after discharge: ANGELICA WEEKS- EX- [phone] SHIRA WEEKS - SON, * Verbal permission to speak to the caregivers and representatives has been obtained from the patient. Yes * Community resources currently utilized None * Additional services required to return to the preadmission environment? No * Can the patient safely return to the preadmission environment? Yes * Has this patient been hospitalized within the prior 30 days at any hospital? No Coverage Notice Reviewer: [id number] Carr Notice Issued Date-Time: 07/03/2018 11:00 Notice Type: IM Discharge Notice Notice Delivered To: Patient Relationship to Patient: Construction Analyst Name: Delivery Method: HAND - Hand Delivered Sarah Days: Prior Verbal Notification: Recipient Understood Notice: Yes Recipient Signature: Med Rec Note Co-signed by Attending: Coverage Notice Comment: Reviewer: [id number] Carr Notice Issued Date-Time: 07/03/2018 15:45 Notice Type: IM Discharge Notice Notice Delivered To: Family Member Relationship to Patient: Son Construction Analyst Name: SHIRA WEEKS Delivery Method: HAND - Hand Delivered Sarah Days: Prior Verbal Notification: Recipient Understood Notice: Yes Recipient Signature: Med Rec Note Co-signed by Attending: Coverage Notice Comment: [facility] DP export: 07/04/18 7:50 a Patient Name: VARUN WEEKS Page 16881 at 0857 All edits/amendments must be made on the electronic document DICTATION DATE: 07/04/18855 RADAR TECHNICIAN: ELODIA 07/04/18855 RPT#: [id number] DC DATE: STATUS: ADM IN [facility] [address] [place] [address] END OF REPORT
[2018-07-04 10:02] VITALS: BP 145/78
[2018-07-04 15:21] VITALS: BP 155/95
[2018-07-04 15:34] VITALS: BP 118/73
[2018-07-04 18:30] VITALS: BP 120/70
[2018-07-04 20:00] VITALS: BP 145/78
[2018-07-05] VITALS (7 sets, daily range): BP systolic 112–168; BP diastolic 67–82
[2018-07-05 05:38] LABS: BASOPHILS 0.2 % (0-2); EOSINOPHILS 0.7 % (0-7); HEMATOCRIT 32.6 % (42.0-54.0); HEMOGLOBIN 10.9 g/dL (13.5-17.5); IMMATURE GRANULOCYTES 0.2 % (0-5); LYMPHOCYTES 11.6 % (15-50); MCH 32.1 pg (26.0-34.0); MCHC 33.4 g/dL (31.0-37.0); MEAN PLATELET VOLUME 11.3 fL (7.4-10.4); MONOCYTES 5.7 % (2-11); NEUTROPHILS 81.6 % (40-80); PLATELET COUNT 204 10x3/uL (130-400); RDW 25.6 % (11.5-14.5); WBC 9.6 10x3/uL (4.8-10.8)
[2018-07-05 05:42] LABS: MCV 95.9 fL (80.0-100.0)
[2018-07-05 06:07] LABS: ALBUMIN 1.9 g/dL (3.4-5.0); ALKALINE PHOSPHATASE 93 U/L (46-116); ALT (SGPT) 35 U/L (10-68); BILIRUBIN - TOTAL 0.93 mg/dL (0.2-1.3); CALC OSMOLALITY 277 mosm/kg (275-300); CALCIUM 7.6 mg/dL (8.5-10.1); CARBON DIOXIDE 24.6 mmol/L (21.0-32.0); CHLORIDE - SERUM 105 mmol/L (98-107); CREATININE - SERUM 0.6 mg/dL (0.6-1.3); GLUCOSE 110 mg/dL (74-106); PHOSPHOROUS 2.6 mg/dL (2.5-4.9); POTASSIUM - SERUM 3.2 mmol/L (3.5-5.1); PROTEIN - SERUM 5.9 g/dL (6.4-8.2); SODIUM 139 mmol/L (136-145); UREA NITROGEN 11 mg/dL (7-18); eGFR NON AFRICAN AMERICAN > 90 mL/min (90-120)
--- NOTE | 2018-07-05 09:03 | MORECARE ---
CASE MANAGEMENT DISCHARGE SUMMARY PATIENT: VARUN WEEKS UNIT: [id number] ADM DATE: 06/25/18 AGE: 67 : 51 SEX: M ROOM/BED: D.2105 AUTHOR: ESA,DOC PHYSICIAN: REFERRING PHYSICIAN: SHANTHI ALICEA MD DATE OF SERVICE: 07/05/18 Discharge Plan Patient Name: VARUN WEEKS Facility: [facility]:[place] : 1950 Planned Disposition: Assisted Facility Anticipated Discharge Date: Discharge Date: Expected LOS: Initial Reviewer: [id number] Initial Review Date: 06/25/2018 Generated: 07/05/18 10:03 am Comments DCP- Discharge Planning Updated by [id number]: Jakob Carr on 07/04/18 7:[address] Patient Name: VARUN WEEKS Encounter No: [id number] : 1950 Primary Insurance: MEDICARE A & B Anticipated DC Date: Planned Disposition: Assisted Facility External Planned Provider: [facility] OR [facility], MEDICARE REHAB BED DCP follow-up note: CM CALLED [facility], , SPOKE TO JACQUELYN AND PROVIDED REFERRAL INFORMATION; CM FAXED REFERRAL TO [phone]. CM CALLED NE[facility], , PROVIDED REFERRAL INFORMATION; CM FAXED REFERRAL TO [phone]. CM WAITING ADMISSION DETERMINATIONS FROM [facility] [place] [facility] IN [place]. DEBORAH Emerson DCP- Discharge Planning Updated by [email or web address]: Jakob Carr on 07/03/18 3:[address] Patient Name: VARUN WEEKS Encounter No: [id number] : 1950 Primary Insurance: MEDICARE A & B Anticipated DC Date: Planned Disposition: Assisted Facility External Planned Provider: [facility] IN [place], MEDICARE REHAB BED DCP follow-up note: CM RECEIVED ORDER FOR INPATIENT REHAB PRESCREEN. CM SPOKE TO PT IN ROOM WHO INFORMED CM THAT HIS EX WANTS HIM CLOSER TO HER AND THAT CM SHOULD CALL HIS SON, SHIRA, AND DO WHAT SHIRA DIRECTS. IMPORTANT MESSAGE FROM MEDICARE PROVIDED AND EXPLAINED. CM CALLED ANGELICA WEEKS [phone]; THIS NUMBER BELONGS TO PATIENT, NOT HIS EX . CM CALLED SHIRA WEEKS, , WHO INFORMED CM THAT THE PLAN IS FOR PT TO GO CLOSER TO [place] SO THAT ANGELICA WEEKS CAN CHECK AND ASSIST WITH PT'S NEEDS. SHIRA WILL OBTAIN SHAHRAM PINEDA AND HAVE HER CALL CM WITH FACILITY CHOICES. SHIRA CALLED CM AT ABOUT 1545 HOURS, INFORMED CM THAT THE TWO FACILITY CHOICES ARE [facility]. CHOICE FORM COMPLETED. CM NOTIFIED BI[facility]A OF INPATIENT REHAB OF PT AND FAMILY DECISION FOR CUSTODIAL REHAB CLOSER TO FAMILY. CM TO SEND REFERRALS TO LOCATED WITHIN [facility] AND REHAB SOON POSSIBLE. Jakob Carr, JAKOB CARR, CASE MANAGEMENT DCP- Discharge Planning Updated by [id number]: Abena Marquez on 06/25/18 6:[address] Patient Name: VARUN WEEKS Admission Status: ER Accout number: [id number] Admission Date: 06-25-2018 : 1950 Admission Diagnosis: Attending: DEANNE, Current LOS: 1 Anticipated DC Date: Planned Disposition: Home Primary Insurance: MEDICARE A & B Discharge Planning Comments:CM met with patient and ex- (Angelica) at bedside. Patient states he lives at home alone. He plans on returning to his home upon discharge. He states he feels safe at his home. He states he will have family drive him home upon discharge. Angelica states that he may need to stay with her upon discharge and the patient is currently not agreeing. He denies any discharge needs at this time. CM will continue to follow and assist as needed with discharge planning / needs. Metal Refiner: Abena Marquez DCPIA - Discharge Planning Initial Assessment Updated by [email or web address]: Jakob Carr on 07/03/18 4:26 pm * Is the patient Alert and Oriented? Yes * How many steps to enter\exit or inside your home? * PCP NO PCP * Pharmacy [facility] * Preadmission Environment Home Alone * ADLs Independent * Equipment Walker * Other Equipment CANE * List name and contact numbers for known caregivers / representatives who currently or will assist patient after discharge: ANGELICA WEEKS- EX- [phone] SHIRA WEEKS - SON, * Verbal permission to speak to the caregivers and representatives has been obtained from the patient. Yes * Community resources currently utilized None * Additional services required to return to the preadmission environment? No * Can the patient safely return to the preadmission environment? Yes * Has this patient been hospitalized within the prior 30 days at any hospital? No Coverage Notice Reviewer: [id number] Carr Notice Issued Date-Time: 07/03/2018 11:00 Notice Type: IM Discharge Notice Notice Delivered To: Patient Relationship to Patient: Bill Of Lading Clerk Name: Delivery Method: HAND - Hand Delivered Sarah Days: Prior Verbal Notification: Recipient Understood Notice: Yes Recipient Signature: Med Rec Note Co-signed by Attending: Coverage Notice Comment: Reviewer: [id number] Carr Notice Issued Date-Time: 07/03/2018 15:45 Notice Type: IM Discharge Notice Notice Delivered To: Family Member Relationship to Patient: Son Bill Of Lading Clerk Name: SHIRA WEEKS Delivery Method: HAND - Hand Delivered Sarah Days: Prior Verbal Notification: Recipient Understood Notice: Yes Recipient Signature: Med Rec Note Co-signed by Attending: Coverage Notice Comment: [facility] DP export: 07/04/18 7:57 a Patient Name: VARUN WEEKS Page 52900 at 0903 All edits/amendments must be made on the electronic document DICTATION DATE: 07/05/18902 HOUSE MOVER SUPERVISOR: ELODIA 07/05/18902 RPT#: [id number] DC DATE: STATUS: ADM IN [facility] [address] [place] [address] END OF REPORT
--- NOTE | 2018-07-05 11:26 | MORECARE ---
CASE MANAGEMENT DISCHARGE SUMMARY PATIENT: VARUN WEEKS UNIT: [id number] ADM DATE: 06/25/18 AGE: 67 : 51 SEX: M ROOM/BED: D.2105 AUTHOR: ESA,DOC PHYSICIAN: REFERRING PHYSICIAN: SHANTHI ALICEA MD DATE OF SERVICE: 07/05/18 Discharge Plan Patient Name: VARUN WEEKS Facility: [facility]:[place] : 1950 Planned Disposition: Halfway Facility Anticipated Discharge Date: Discharge Date: Expected LOS: Initial Reviewer: [email or web address] Initial Review Date: 06/25/2018 Generated: 07/05/18 12:25 pm Comments DCP- Discharge Planning Updated by [email or web address]: Jakob Carr on 07/05/18 10:[address] Patient Name: VARUN WEEKS Encounter No: [id number] : 1950 Primary Insurance: MEDICARE A & B Anticipated DC Date: Planned Disposition: Halfway Facility External Planned Provider: : DCP follow-up note: SHIRA WEEKS - SON, Jakob Carr DCP- Discharge Planning Updated by [email or web address]: Jakob Carr on 07/04/18 7:[address] Patient Name: VARUN WEEKS Encounter No: [id number] : 1950 Primary Insurance: MEDICARE A & B Anticipated DC Date: Planned Disposition: Halfway Facility External Planned Provider: [facility] OR [facility], MEDICARE REHAB BED DCP follow-up note: CM CALLED [facility], , SPOKE TO JACQUELYN AND PROVIDED REFERRAL INFORMATION; CM FAXED REFERRAL TO [phone]. CM CALLED [facility], , PROVIDED REFERRAL INFORMATION; CM FAXED REFERRAL TO [phone]. CM WAITING ADMISSION DETERMINATIONS FROM [facility] [place] [facility] IN [place]. DEBORAH Emerson DCP- Discharge Planning Updated by [email or web address]: Jakob Carr on 07/03/18 3:[address] Patient Name: VARUN WEEKS Encounter No: [id number] : 1950 Primary Insurance: MEDICARE A & B Anticipated DC Date: Planned Disposition: Halfway Facility External [facility] [place], MEDICARE REHAB BED DCP follow-up note: CM RECEIVED ORDER FOR INPATIENT REHAB PRESCREEN. CM SPOKE TO PT IN ROOM WHO INFORMED CM THAT HIS EX WANTS HIM CLOSER TO HER AND THAT CM SHOULD CALL HIS SON, SHIRA, AND DO WHAT SHIRA DIRECTS. IMPORTANT MESSAGE FROM MEDICARE PROVIDED AND EXPLAINED. CM CALLED ANGELICA WEEKS, ; THIS NUMBER BELONGS TO PATIENT, NOT HIS EX . CM CALLED SHIRA WEEKS, , WHO INFORMED CM THAT THE PLAN IS FOR PT TO GO CLOSER TO [place] SO THAT ANGELICA WEEKS CAN CHECK AND ASSIST WITH PT'S NEEDS. SHIRA WILL OBTAIN SHAHRAM PINEDA AND HAVE HER CALL CM WITH FACILITY CHOICES. SHIRA CALLED CM AT ABOUT 1545 HOURS, INFORMED CM THAT THE TWO FACILITY CHOICES ARE [facility] AND [facility]. CHOICE FORM COMPLETED. CM NOTIFIED BI[facility] OF INPATIENT REHAB OF PT AND FAMILY DECISION FOR GROUP HOME REHAB CLOSER TO FAMILY. CM TO SEND REFERRALS TO [facility] AND [facility] AND REHAB SOON POSSIBLE. Jakob Carr, JAKOB CARR, CASE MANAGEMENT DCP- Discharge Planning Updated by [id number]: Abena Marquez on 06/25/18 6:[address] Patient Name: VARUN WEEKS Admission Status: ER Accout number: [id number] Admission Date: 06-25-2018 : 1950 Admission Diagnosis: Attending: DEANNE, Current LOS: 1 Anticipated DC Date: Planned Disposition: Home Primary Insurance: MEDICARE A & B Discharge Planning Comments:CM met with patient and ex- (Angelica) at bedside. Patient states he lives at home alone. He plans on returning to his home upon discharge. He states he feels safe at his home. He states he will have family drive him home upon discharge. Angelica states that he may need to stay with her upon discharge and the patient is currently not agreeing. He denies any discharge needs at this time. CM will continue to follow and assist as needed with discharge planning / needs. Pipe Insulator Helper: Abena Marquez DCPIA - Discharge Planning Initial Assessment Updated by [id number]: Jakob Carr on 07/03/18 4:26 pm * Is the patient Alert and Oriented? Yes * How many steps to enter\exit or inside your home? * PCP NO PCP * Pharmacy [facility] * Preadmission Environment Home Alone * ADLs Independent * Equipment Walker * Other Equipment CANE * List name and contact numbers for known caregivers / representatives who currently or will assist patient after discharge: ANGELICA WEEKS- EX- [phone] SHIRA WEEKS - SON, * Verbal permission to speak to the caregivers and representatives has been obtained from the patient. Yes * Community resources currently utilized None * Additional services required to return to the preadmission environment? No * Can the patient safely return to the preadmission environment? Yes * Has this patient been hospitalized within the prior 30 days at any hospital? No Coverage Notice Reviewer: [id number] Carr Notice Issued Date-Time: 07/03/2018 11:00 Notice Type: IM Discharge Notice Notice Delivered To: Patient Relationship to Patient: Operator Lights Name: Delivery Method: HAND - Hand Delivered Sarah Days: Prior Verbal Notification: Recipient Understood Notice: Yes Recipient Signature: Med Rec Note Co-signed by Attending: Coverage Notice Comment: Reviewer: [id number] Carr Notice Issued Date-Time: 07/03/2018 15:45 Notice Type: IM Discharge Notice Notice Delivered To: Family Member Relationship to Patient: Son Operator Lights Name: SHIRA WEEKS Delivery Method: HAND - Hand Delivered Sarah Days: Prior Verbal Notification: Recipient Understood Notice: Yes Recipient Signature: Med Rec Note Co-signed by Attending: Coverage Notice Comment: [facility] DP export: 07/05/18 8:03 a Patient Name: VARUN WEEKS Page 88558 at 1126 All edits/amendments must be made on the electronic document DICTATION DATE: 07/05/18 112 GEOGRAPHY DEPARTMENT CHAIR: ELODIA 07/05/18 112 RPT#: [id number] DC DATE: STATUS: ADM IN [facility] [address] [place] [address] END OF REPORT
--- NOTE | 2018-07-05 11:36 | MORECARE ---
CASE MANAGEMENT DISCHARGE SUMMARY PATIENT: VARUN WEEKS UNIT: [id number] ADM DATE: 06/25/18 AGE: 67 : 51 SEX: M ROOM/BED: D.2105 AUTHOR: ESA,DOC PHYSICIAN: REFERRING PHYSICIAN: SHANTHI ALICEA MD DATE OF SERVICE: 07/05/18 Discharge Plan Patient Name: VARUN WEEKS Facility: [facility]:[place] : 1950 Planned Disposition: Half-Way Facility Anticipated Discharge Date: Discharge Date: Expected LOS: Initial Reviewer: [id number] Initial Review Date: 06/25/2018 Generated: 07/05/18 12:36 pm Comments DCP- Discharge Planning Updated by [id number]: Jakob Walker on 07/05/18 10:[address] Patient Name: VARUN WEEKS Encounter No: [id number] : 1950 Primary Insurance: MEDICARE A & B Anticipated DC Date: Planned Disposition: Half-Way Facility External Planned Provider: [facility] [place], MEDICARE REHAB BED DCP follow-up note: CM RECEIVED CALL FROM SHIRA WEEKS - SON, , PLACEMENT UPDATE PROVIDED. FAMILY STILL PLANS TO TRANSPORT TO REHAB FROM HOSPITAL. CM CALLED [facility], , SPOKE TO JACQUELYN WHO INFORMED CM THEY CANNOT ACCEPT PT THEY HAVE NO MALE REHAB BED AVAILABLE. CM CALLED [facility], , SPOKE TO ROBERT WHO RECEIVED REFERRAL AND WILL CALL PT'S SON TODAY TO DISCUSS POSSIBLE ACCEPTANCE FOR REHAB AND WILL CALL CM WITH DETERMINATION. CM FAXED REFERRAL TO [phone]. CM WAITING ADMISSION DETERMINATIONS FROM [facility] IN [place]. Jakob Walker CASE NOHEMI DCP- Discharge Planning Updated by [id number]: Jakob Walker on 07/04/18 7:[address] Patient Name: VARUN WEEKS Encounter No: [id number] : 1950 Primary Insurance: MEDICARE A & B Anticipated DC Date: Planned Disposition: Half-Way Facility External Planned Provider: [facility] OR [facility], MEDICARE REHAB BED DCP follow-up note: CM CALLED [facility], , SPOKE TO JACQUELYN AND PROVIDED REFERRAL INFORMATION; CM FAXED REFERRAL TO [phone]. CM CALLED [facility], , PROVIDED REFERRAL INFORMATION; CM FAXED REFERRAL TO [phone]. CM WAITING ADMISSION DETERMINATIONS FROM [facility] [place]. Jakob Walker CASE MANAGEMENT DCP- Discharge Planning Updated by [id number]: Jakob Walker on 07/03/18 3:[address] Patient Name: VARUN WEEKS Encounter No: [id number] : 1950 Primary Insurance: MEDICARE A & B Anticipated DC Date: Planned Disposition: Half-Way Facility External Planned Provider: [facility] OR [facility] IN [place], MEDICARE REHAB BED DCP follow-up note: CM RECEIVED ORDER FOR INPATIENT REHAB PRESCREEN. CM SPOKE TO PT IN ROOM WHO INFORMED CM THAT HIS EX WANTS HIM CLOSER TO HER AND THAT CM SHOULD CALL HIS SON, SHIRA, AND DO WHAT SHIRA DIRECTS. IMPORTANT MESSAGE FROM MEDICARE PROVIDED AND EXPLAINED. CM CALLED ANGELICA WEEKS, ; THIS NUMBER BELONGS TO PATIENT, NOT HIS EX . CM CALLED SHIRA WEEKS, , WHO INFORMED CM THAT THE PLAN IS FOR PT TO GO CLOSER TO [place] SO THAT ANGELICA WEEKS CAN CHECK AND ASSIST WITH PT'S NEEDS. SHIRA WILL OBTAIN SHAHRAM PINEDA AND HAVE HER CALL CM WITH FACILITY CHOICES. SHIRA CALLED CM AT ABOUT 1545 HOURS, INFORMED CM THAT THE TWO FACILITY CHOICES ARE [facility] AND [facility]. CHOICE FORM COMPLETED. CM NOTIFIED [facility] OF INPATIENT REHAB OF PT AND FAMILY DECISION FOR SENIOR CARE REHAB CLOSER TO FAMILY. CM TO SEND REFERRALS TO [facility] AND [facility] AND REHAB SOON POSSIBLE. JAKOB Emerson, CASE MANAGEMENT DCP- Discharge Planning Updated by [id number]: Abena Marquez on 06/25/18 6:[address] Patient Name: VARUN WEEKS Admission Status: ER Accout number: [id number] Admission Date: 06-25-2018 : 1950 Admission Diagnosis: Attending: DEANNE, Current LOS: 1 Anticipated DC Date: Planned Disposition: Home Primary Insurance: MEDICARE A & B Discharge Planning Comments:CM met with patient and ex- (Angelica) at bedside. Patient states he lives at home alone. He plans on returning to his home upon discharge. He states he feels safe at his home. He states he will have family drive him home upon discharge. Angelica states that he may need to stay with her upon discharge and the patient is currently not agreeing. He denies any discharge needs at this time. CM will continue to follow and assist as needed with discharge planning / needs. Engineering Program Manager: Abena BLOOD - Discharge Planning Initial Assessment Updated by [email or web address]: Jakob Walker on 07/03/18 4:26 pm * Is the patient Alert and Oriented? Yes * How many steps to enter\exit or inside your home? * PCP NO PCP * Pharmacy [facility] * Preadmission Environment Home Alone * ADLs Independent * Equipment Walker * Other Equipment CANE * List name and contact numbers for known caregivers / representatives who currently or will assist patient after discharge: ANGELICA WEEKS- EX- [phone] SHIRA WEEKS - SON, * Verbal permission to speak to the caregivers and representatives has been obtained from the patient. Yes * Community resources currently utilized None * Additional services required to return to the preadmission environment? No * Can the patient safely return to the preadmission environment? Yes * Has this patient been hospitalized within the prior 30 days at any hospital? No Coverage Notice Reviewer: [id number] Berkley Walker Notice Issued Date-Time: 07/03/2018 11:00 Notice Type: IM Discharge Notice Notice Delivered To: Patient Relationship to Patient: Industrial Methods Consultant Name: Delivery Method: HAND - Hand Delivered Sarah Days: Prior Verbal Notification: Recipient Understood Notice: Yes Recipient Signature: Med Rec Note Co-signed by Attending: Coverage Notice Comment: Reviewer: [id number] Berkley Walker Notice Issued Date-Time: 07/03/2018 15:45 Notice Type: IM Discharge Notice Notice Delivered To: Family Member Relationship to Patient: Son Industrial Methods Consultant Name: SHIRA WEEKS Delivery Method: HAND - Hand Delivered Sarah Days: Prior Verbal Notification: Recipient Understood Notice: Yes Recipient Signature: Med Rec Note Co-signed by Attending: Coverage Notice Comment: [facility] Last DP export: 07/05/18 10:25 a Patient Name: VARUN WEEKS Page 16508 at 1136 All edits/amendments must be made on the electronic document DICTATION DATE: 07/05/181134 BUTTON MACHINE OPERATOR: ELODIA 07/05/181134 RPT#: [id number] DC DATE: STATUS: ADM IN [facility] [address] [place] [address] END OF REPORT
[2018-07-06 04:57] LABS: ALBUMIN 1.9 g/dL (3.4-5.0); ALKALINE PHOSPHATASE 100 U/L (46-116); ALT (SGPT) 40 U/L (10-68); BILIRUBIN - TOTAL 1.12 mg/dL (0.2-1.3); CALC OSMOLALITY 275 mosm/kg (275-300); CALCIUM 7.7 mg/dL (8.5-10.1); CARBON DIOXIDE 25.3 mmol/L (21.0-32.0); CHLORIDE - SERUM 106 mmol/L (98-107); CREATININE - SERUM 0.6 mg/dL (0.6-1.3); GLUCOSE 105 mg/dL (74-106); PHOSPHOROUS 2.5 mg/dL (2.5-4.9); POTASSIUM - SERUM 4.2 mmol/L (3.5-5.1); SODIUM 138 mmol/L (136-145); UREA NITROGEN 12 mg/dL (7-18); eGFR NON AFRICAN AMERICAN > 90 mL/min (90-120)
[2018-07-06 06:00] LABS: BASOPHILS 0.3 % (0-2); EOSINOPHILS 1.2 % (0-7); HEMOGLOBIN 10.6 g/dL (13.5-17.5); IMMATURE GRANULOCYTES 0.4 % (0-5); LYMPHOCYTES 10.6 % (15-50); MCH 31.5 pg (26.0-34.0); MCHC 33.1 g/dL (31.0-37.0); MCV 95.2 fL (80.0-100.0); MEAN PLATELET VOLUME 10.6 fL (7.4-10.4); MONOCYTES 5.4 % (2-11); NEUTROPHILS 82.1 % (40-80); PLATELET COUNT 213 10x3/uL (130-400); RBC 3.36 10x6/uL (4.20-6.10); RDW 25.2 % (11.5-14.5)
[2018-07-06 08:48] VITALS: BP 137/68
[2018-07-06 12:25] VITALS: BP 100/55
[2018-07-06 15:59] VITALS: BP 100/48
[2018-07-06 20:44] VITALS: BP 108/69
[2018-07-07 00:54] VITALS: BP 147/62
[2018-07-07 04:00] VITALS: BP 147/70
[2018-07-07 07:58] VITALS: BP 152/81
[2018-07-07 11:22] VITALS: BP 100/64
[2018-07-07 16:10] VITALS: BP 105/54
[2018-07-07 20:00] VITALS: BP 124/67
[2018-07-08] VITALS: BP 146/77
[2018-07-08 04:00] VITALS: BP 159/86
[2018-07-08 06:03] LABS: BASOPHILS 0.4 % (0-2); EOSINOPHILS 1.9 % (0-7); HEMATOCRIT 33.9 % (42.0-54.0); HEMOGLOBIN 11.5 g/dL (13.5-17.5); IMMATURE GRANULOCYTES 0.5 % (0-5); LYMPHOCYTES 13.7 % (15-50); MCH 32.6 pg (26.0-34.0); MCHC 33.9 g/dL (31.0-37.0); MEAN PLATELET VOLUME 11.1 fL (7.4-10.4); MONOCYTES 5.5 % (2-11); PLATELET COUNT 229 10x3/uL (130-400); RBC 3.53 10x6/uL (4.20-6.10)
[2018-07-08 06:17] LABS: WBC 7.4 10x3/uL (4.8-10.8)
[2018-07-08 06:26] LABS: ALKALINE PHOSPHATASE 115 U/L (46-116); ALT (SGPT) 49 U/L (10-68); BILIRUBIN - TOTAL 0.92 mg/dL (0.2-1.3); CALC OSMOLALITY 284 mosm/kg (275-300); CALCIUM 8.2 mg/dL (8.5-10.1); CHLORIDE - SERUM 108 mmol/L (98-107); CREATININE - SERUM 0.7 mg/dL (0.6-1.3); GLUCOSE 87 mg/dL (74-106); POTASSIUM - SERUM 3.2 mmol/L (3.5-5.1); PROTEIN - SERUM 6.2 g/dL (6.4-8.2); SODIUM 143 mmol/L (136-145); UREA NITROGEN 14 mg/dL (7-18); eGFR NON AFRICAN AMERICAN > 90 mL/min (90-120)
[2018-07-08 07:53] VITALS: BP 111/66
--- NOTE | 2018-07-08 09:34 | MORECARE ---
CASE MANAGEMENT DISCHARGE SUMMARY PATIENT: VARUN WEEKS UNIT: [id number] ADM DATE: 06/25/18 AGE: 67 : 52 SEX: M ROOM/BED: D.2105 AUTHOR: ESA,DOC PHYSICIAN: REFERRING PHYSICIAN: SHANTHI ALICEA MD DATE OF SERVICE: 07/08/18 Discharge Plan Patient Name: VARUN WEEKS Facility: [facility]:[place] : 1950 Planned Disposition: Custodial Facility Anticipated Discharge Date: Discharge Date: Expected LOS: Initial Reviewer: [id number] Initial Review Date: 06/25/2018 Generated: 07/08/18 10:34 am Comments DCP- Discharge Planning Updated by [id number]: Jakob Carr on 07/08/18 8:[address] Patient Name: VARUN WEEKS Encounter No: [id number] : 1950 Primary Insurance: MEDICARE A & B Anticipated DC Date: Planned Disposition: Custodial Facility External Planned Provider: [facility], MEDICARE REHAB BED DCP follow-up note: CM CALLED [facility], , LEFT VOICE MAIL FOR ROBERT ASKING FOR ADMISSION DETERMINATION AND NOTIFYING THAT THE DOCTOR IS READY TO DISCHARGE PT TO REHAB. CM FAXED REFERRAL UPDATE TO [phone]. CM WAITING ADMISSION DETERMINATIONS FROM [facility] [place]. [facility] PLANS TO TRANSPORT TO REHAB IF ACCEPTED. DEBORAH Emerson DCP- Discharge Planning Updated by [id number]: Jakob Carr on 07/05/18 10:[address] Patient Name: VARUN WEEKS Encounter No: [id number] : 1950 Primary Insurance: MEDICARE A & B Anticipated DC Date: Planned Disposition: Custodial Facility External Planned Provider: [facility], MEDICARE REHAB BED DCP follow-up note: CM RECEIVED CALL FROM SHIRA WEEKS - SON, , PLACEMENT UPDATE PROVIDED. FAMILY STILL PLANS TO TRANSPORT TO REHAB FROM HOSPITAL. CM CALLED [facility], , SPOKE TO JACQUELYN WHO INFORMED CM THEY CANNOT ACCEPT PT THEY HAVE NO MALE REHAB BED AVAILABLE. CM CALLED [facility] [phone], SPOKE TO ROBERT WHO RECEIVED REFERRAL AND WILL CALL PT'S SON TODAY TO DISCUSS POSSIBLE ACCEPTANCE FOR REHAB AND WILL CALL CM WITH DETERMINATION. CM FAXED REFERRAL TO [phone]. CM WAITING ADMISSION DETERMINATIONS FROM [facility] IN [place]. Jakob Carr CASE MANAGEMENT DCP- Discharge Planning Updated by [email or web address]: Jakob Carr on 07/04/18 7:[address] Patient Name: VARUN WEEKS Encounter No: [id number] : 1950 Primary Insurance: MEDICARE A & B Anticipated DC Date: Planned Disposition: Custodial Facility External Planned Provider: [facility] OR [facility], MEDICARE REHAB BED DCP follow-up note: CM CALLED [facility], , SPOKE TO JACQUELYN AND PROVIDED REFERRAL INFORMATION; CM FAXED REFERRAL TO [phone]. CM CALLED [facility], , PROVIDED REFERRAL INFORMATION; CM FAXED REFERRAL TO [phone]. CM WAITING ADMISSION DETERMINATIONS FROM [facility] [place]. Jakob Carr CASE MANAGEMENT DCP- Discharge Planning Updated by [id number]: Jakob Carr on 07/03/18 3:[address] Patient Name: VARUN WEEKS Encounter No: [id number] : 1950 Primary Insurance: MEDICARE A & B Anticipated DC Date: Planned Disposition: Custodial Facility External Planned Provider: [facility] OR [facility] [place], MEDICARE REHAB BED DCP follow-up note: CM RECEIVED ORDER FOR INPATIENT REHAB PRESCREEN. CM SPOKE TO PT IN ROOM WHO INFORMED CM THAT HIS EX WANTS HIM CLOSER TO HER AND THAT CM SHOULD CALL HIS SON, SHIRA, AND DO WHAT SHIRA DIRECTS. IMPORTANT MESSAGE FROM MEDICARE PROVIDED AND EXPLAINED. CM CALLED ANGELICA DESI, ; THIS NUMBER BELONGS TO PATIENT, NOT HIS EX . CM CALLED SHIRA DESI, , WHO INFORMED CM THAT THE PLAN IS FOR PT TO GO CLOSER TO [place] SO THAT ANGELICA DESI CAN CHECK AND ASSIST WITH PT'S NEEDS. SHIRA WILL OBTAIN SHAHRAM PINEDA AND HAVE HER CALL CM WITH FACILITY CHOICES. SHIRA CALLED CM AT ABOUT 1545 HOURS, INFORMED CM THAT THE TWO FACILITY CHOICES ARE [facility] AND [facility]. CHOICE FORM COMPLETED. CM NOTIFIED BIANKA OF INPATIENT REHAB OF PT AND FAMILY DECISION FOR [facility] REHAB CLOSER TO FAMILY. CM TO SEND REFERRALS TO [facility] AND [facility] AND REHAB SOON POSSIBLE. Jakob Carr, JAKOB CARR, CASE MANAGEMENT DCP- Discharge Planning Updated by [email or web address]: Abena Marquez on 06/25/18 6:[address] Patient Name: VARUN WEEKS Admission Status: ER Accout number: [id number] Admission Date: 06-25-2018 : 1950 Admission Diagnosis: Attending: DEANNE, Current LOS: 1 Anticipated DC Date: Planned Disposition: Home Primary Insurance: MEDICARE A & B Discharge Planning Comments:CM met with patient and ex- (Angelica) at bedside. Patient states he lives at home alone. He plans on returning to his home upon discharge. He states he feels safe at his home. He states he will have family drive him home upon discharge. Angelica states that he may need to stay with her upon discharge and the patient is currently not agreeing. He denies any discharge needs at this time. CM will continue to follow and assist as needed with discharge planning / needs. Ironworker: Abena Marquez DCPIA - Discharge Planning Initial Assessment Updated by [email or web address]: Jakob Carr on 07/03/18 4:26 pm * Is the patient Alert and Oriented? Yes * How many steps to enter\exit or inside your home? * PCP NO PCP * Pharmacy [facility] [place] * Preadmission Environment Home Alone * ADLs Independent * Equipment Walker * Other Equipment CANE * List name and contact numbers for known caregivers / representatives who currently or will assist patient after discharge: ANGELICA WEEKS- EX- [phone] SHIRA WEEKS - SON, * Verbal permission to speak to the caregivers and representatives has been obtained from the patient. Yes * Community resources currently utilized None * Additional services required to return to the preadmission environment? No * Can the patient safely return to the preadmission environment? Yes * Has this patient been hospitalized within the prior 30 days at any hospital? No Coverage Notice Reviewer: [id number] Berkley Carr Notice Issued Date-Time: 07/03/2018 11:00 Notice Type: IM Discharge Notice Notice Delivered To: Patient Relationship to Patient: Tool Pusher Name: Delivery Method: HAND - Hand Delivered Sarah Days: Prior Verbal Notification: Recipient Understood Notice: Yes Recipient Signature: Med Rec Note Co-signed by Attending: Coverage Notice Comment: Reviewer: [id number] Carr Notice Issued Date-Time: 07/03/2018 15:45 Notice Type: IM Discharge Notice Notice Delivered To: Family Member Relationship to Patient: Son Tool Pusher Name: SHIRA WEEKS Delivery Method: HAND - Hand Delivered Sarah Days: Prior Verbal Notification: Recipient Understood Notice: Yes Recipient Signature: Med Rec Note Co-signed by Attending: Coverage Notice Comment: [facility] DP export: 07/05/18 10:36 a Patient Name: VARUN WEEKS Page [id number] at 0934 All edits/amendments must be made on the electronic document DICTATION DATE: 07/08/18932 PLATE HANGER: ELODIA 07/08/18932 RPT#: [id number] DC DATE: STATUS: ADM IN [facility] [address] [place] [address] END OF REPORT
[2018-07-08 10:46] LABS: APPEARANCE CLEAR (CLEAR); BACTERIA MANY /hpf (NONE SEEN); BILIRUBIN NEGATIVE (NEGATIVE); COLOR STRAW (YELLOW); EPITHELIAL CELLS RARE /hpf (0-5); GLUCOSE NEGATIVE (NEGATIVE); KETONE NEGATIVE (NEGATIVE); NITRITE POSITIVE (NEGATIVE); PROTEIN NEGATIVE (NEGATIVE); RED CELLS - URINE 0-5 /hpf (0-5); SPECIFIC GRAVITY 1.005 (1.005-1.020); UROBILINOGEN NORMAL (NORMAL)
[2018-07-08 11:19] VITALS: BP 134/74
--- NOTE | 2018-07-08 12:00 | MORECARE ---
CASE MANAGEMENT DISCHARGE SUMMARY PATIENT: VARUN WEEKS UNIT: [id number] ADM DATE: 06/25/18 AGE: 67 : 51 SEX: M ROOM/BED: D.2105 AUTHOR: ESADOC PHYSICIAN: REFERRING PHYSICIAN: SHANTHI ALICEA MD DATE OF SERVICE: 07/08/18 Discharge Plan Patient Name: VARUN WEEKS Facility: [facility]:[place] : 1950 Planned Disposition: Retirement Facility Anticipated Discharge Date: Discharge Date: Expected LOS: Initial Reviewer: [id number] Initial Review Date: 06/25/2018 Generated: 07/08/18 12:59 pm Comments DCP- Discharge Planning Updated by [id number]: Mackenzie Ayala on 07/08/18 10:[address] @ 1148 RECEIVED A CALL FROM SHIRA WEEKS WANTING TO KNOW WHAT THE HOLD UP WAS IN DISCHARGING HIS DAD TO THE NURSING FACILITY. I EXPLAINED THAT MARISOL HAD TO LEAVE FROM THE DAY, BUT MY UNDERSTANDING IS THAT WE ARE WAITING ON THE FACILITY TO ACCEPT THE PATIENT. PER MARISOL'S 09 NOTE, HE FAXED UPDATE AND WAS WAITING FOR RETURN CALL. HE STATED THAT ROBERT HAD CALLED HIM AND TOLD HIM THAT HIS DAD BEEN ACCEPTED AND THAT THEY HAVE BEEN CALLING MARISOL ALL MORNING AND HIS VOICEMAIL HASN'T PICKED UP. I EXPLAINED TO THE SON THAT I WOULD FOLLOW UP AND SEE IF THE DOCTOR WILL DISCHARGE TODAY. HE HAS REQUESTED CALL BACK AT [phone]. I EXPLAINED I WOULD CALL @ 1151, CALL PLACED TO SPEAK WITH ROBERT, , OPTION #1, OPTION #1. RECEIVED HER VOICEMAIL. LEFT A REQUEST FOR HER TO CALL ME BACK TO CONFIRM THAT THE PATIENT HAS BEEN ACCEPTED BEFORE I CALL THE DOCTOR FOR ORDERS. EXPLAINED WHAT THE SON EXPLAINED TO ME. I HAVE REQUESTED A CALL BACK TO MARISOL'S PHONE OR MINE AT [phone]. I WILL WAIT FOR CALL BACK. IN THE MEANTIME, I WILL GO AHEAD AND CALL ANGELICA AND EXPLAINE TO HER THE ABOVE AND SEE IF SHE WANTS TO PUT IN DISCHARGE ORDERS OR WAIT FOR MY RETURN CALL. DCP- Discharge Planning Updated by [id number]: Jakob Walker on 07/08/18 8:[address] Patient Name: VARUN WEEKS Encounter No: [id number] : 1950 Primary Insurance: MEDICARE A & B Anticipated DC Date: Planned Disposition: Retirement Facility External Planned Provider: [facility] [place], MEDICARE REHAB BED DCP follow-up note: CM CALLED [facility], , LEFT VOICE MAIL FOR ROBERT ASKING FOR ADMISSION DETERMINATION AND NOTIFYING THAT THE DOCTOR IS READY TO DISCHARGE PT TO REHAB. CM FAXED REFERRAL UPDATE TO [phone]. CM WAITING [facility]ATIONS [facility] [place]. [facility] PLANS TO TRANSPORT TO REHAB IF ACCEPTED. aJkob Walker CASE MANAGEMENT DCP- Discharge Planning Updated by [id number]: Jakob Walker on 07/05/18 10:[address] Patient Name: VARUN WEEKS Encounter No: [id number] : 1950 Primary Insurance: MEDICARE A & B Anticipated DC Date: Planned Disposition: Retirement Facility External Planned Provider: [facility] [place], MEDICARE REHAB BED DCP follow-up note: CM RECEIVED CALL FROM SHIRA WEEKS - SON, , PLACEMENT UPDATE PROVIDED. FAMILY STILL PLANS TO TRANSPORT TO REHAB FROM HOSPITAL. [facility], , SPOKE TO JACQUELYN WHO INFORMED CM THEY CANNOT ACCEPT PT THEY HAVE NO MALE REHAB BED AVAILABLE. CM CALLED [facility], , SPOKE TO ROBERT WHO RECEIVED REFERRAL AND WILL CALL PT'S SON TODAY TO DISCUSS POSSIBLE ACCEPTANCE FOR REHAB AND WILL CALL CM WITH DETERMINATION. CM FAXED REFERRAL TO [phone]. CM WAITING ADMISSION DET[facility]MINATIONS [facility] [place]. Jakob Walker CASE MANAGEMENT DCP- Discharge Planning Updated by [id number]: Jakob Walker on 07/04/18 7:[address] Patient Name: VARUN WEEKS Encounter No: [id number] : 1950 Primary Insurance: MEDICARE A & B Anticipated DC Date: Planned Disposition: Retirement Facility External Planned Provider: [facility], MEDICARE REHAB BED DCP follow-up note: CM CALLED [facility], , SPOKE TO JACQUELYN AND PROVIDED REFERRAL INFORMATION; CM FAXED REFERRAL TO [phone]. CM CALLED [facility], , PROVIDED REFERRAL INFORMATION; CM FAXED REFERRAL TO [phone]. CM WAITING ADMISSION DETERMINATIONS FROM [facility] AND [facility] IN [place]. Jakob Walker CASE MANAGEMENT DCP- Discharge Planning Updated by [id number]: Jakob Walker on 07/03/18 3:[address] Patient Name: VARUN WEEKS Encounter No: [id number] : 1950 Primary Insurance: MEDICARE A & B Anticipated DC Date: Planned Disposition: Retirement Facility External Planned Provider: [facility] OR [facility] [place], MEDICARE REHAB BED DCP follow-up note: CM RECEIVED ORDER FOR INPATIENT REHAB PRESCREEN. CM SPOKE TO PT IN ROOM WHO INFORMED CM THAT HIS EX WANTS HIM CLOSER TO HER AND THAT CM SHOULD CALL HIS SON, SHIRA, AND DO WHAT SHIRA DIRECTS. IMPORTANT MESSAGE FROM MEDICARE PROVIDED AND EXPLAINED. CM CALLED ANGELICA WEEKS, ; THIS NUMBER BELONGS TO PATIENT, NOT HIS EX . CM CALLED SHIRA WEEKS, , WHO INFORMED CM THAT THE PLAN IS FOR PT TO GO CLOSER TO [place] SO THAT ANGELICA WEEKS CAN CHECK AND ASSIST WITH PT'S NEEDS. SHIRA WILL OBTAIN SHAHRAM PINEDA AND HAVE HER CALL CM WITH FACILITY CHOICES. SHIRA CALLED CM AT ABOUT 1545 HOURS, INFORMED CM THAT THE TWO FACILITY CHOICES ARE [facility] AND [facility]. CHOICE FORM COMPLETED. CM NOTIFIED BIANKA OF INPATIENT REHAB OF PT AND FAMILY DECISION FOR HALFWAY REHAB CLOSER TO FAMILY. CM TO SEND REFERRALS TO [facility] AND [facility] AND REHAB SOON POSSIBLE. JAKOB Emerson, CASE MANAGEMENT DCP- Discharge Planning Updated by [id number]: Abena Marquez on 06/25/18 6:[address] Patient Name: VARUN WEEKS Admission Status: ER Accout number: [id number] Admission Date: 06-25-2018 : 1950 Admission Diagnosis: Attending: DEANNE, Current LOS: 1 Anticipated DC Date: Planned Disposition: Home Primary Insurance: MEDICARE A & B Discharge Planning Comments:CM met with patient and ex- (Angelica) at bedside. Patient states he lives at home alone. He plans on returning to his home upon discharge. He states he feels safe at his home. He states he will have family drive him home upon discharge. Angelica states that he may need to stay with her upon discharge and the patient is currently not agreeing. He denies any discharge needs at this time. CM will continue to follow and assist as needed with discharge planning / needs. Music Critic: Abena BLOOD - Discharge Planning Initial Assessment Updated by [id number]: Jakob Walker on 07/03/18 4:26 pm * Is the patient Alert and Oriented? Yes * How many steps to enter\exit or inside your home? * PCP NO PCP * Pharmacy [facility] [place] * Preadmission Environment Home Alone * ADLs Independent * Equipment Walker * Other Equipment CANE * List name and contact numbers for known caregivers / representatives who currently or will assist patient after discharge: ANGELICA WEEKS- EX- [phone] SHIRA WEEKS - SON, * Verbal permission to speak to the caregivers and representatives has been obtained from the patient. Yes * Community resources currently utilized None * Additional services required to return to the preadmission environment? No * Can the patient safely return to the preadmission environment? Yes * Has this patient been hospitalized within the prior 30 days at any hospital? No Coverage Notice Reviewer: [id number] Walker Notice Issued Date-Time: 07/03/2018 11:00 Notice Type: IM Discharge Notice Notice Delivered To: Patient Relationship to Patient: Production Supply Equipment Tender Name: Delivery Method: HAND - Hand Delivered Sarah Days: Prior Verbal Notification: Recipient Understood Notice: Yes Recipient Signature: Med Rec Note Co-signed by Attending: Coverage Notice Comment: Reviewer: [id number] Berkley Walker Notice Issued Date-Time: 07/03/2018 15:45 Notice Type: IM Discharge Notice Notice Delivered To: Family Member Relationship to Patient: Son Production Supply Equipment Tender Name: SHIRA WEEKS Delivery Method: HAND - Hand Delivered Sarah Days: Prior Verbal Notification: Recipient Understood Notice: Yes Recipient Signature: Med Rec Note Co-signed by Attending: Coverage Notice Comment: [facility] export: 07/08/18 8:34 a Patient Name: VARUN WEEKS Page 66662 at 1200 All edits/amendments must be made on the electronic document DICTATION DATE: 07/08/181158 FOREPART LASTER: ELODIA 07/08/181158 RPT#: [id number] DC DATE: STATUS: ADM IN [facility] [address] [place] [address] END OF REPORT
--- NOTE | 2018-07-08 12:07 | MORECARE ---
CASE MANAGEMENT DISCHARGE SUMMARY PATIENT: VARUN WEEKS UNIT: [id number] ADM DATE: 06/25/18 AGE: 67 : [birth year] SEX: M ROOM/BED: D.2105 AUTHOR: ESADOC PHYSICIAN: REFERRING PHYSICIAN: SHANTHI ALICEA MD DATE OF SERVICE: 07/08/18 Discharge Plan Patient Name: VARUN WEEKS Facility: [facility]:[place] : 1950 Planned Disposition: Longterm Facility Anticipated Discharge Date: Discharge Date: Expected LOS: Initial Reviewer: [id number] Initial Review Date: 06/25/2018 Generated: 07/08/18 1:07 pm Comments DCP- Discharge Planning Updated by [id number]: Mackenzie Ayala on 07/08/18 11:[address] I JUST SPOKE WITH ANGELICA BARRETT APN. SHE HAS STATED WITH THE FEVER, SHE JUST WANTED TO RUN IT BY DR VANG BEFORE DISCHARGING THE PATINET. I WILL WAIT ON BOTH HER AND ROBERT TO CALL BACK. DCP- Discharge Planning Updated by [id number]: Mackenzie Ayala on 07/08/18 10:[address] @ 2160 RECEIVED A CALL FROM SHIRA WEEKS WANTING TO KNOW WHAT THE HOLD UP WAS IN DISCHARGING HIS DAD TO THE NURSING FACILITY. I EXPLAINED THAT MARISOL HAD TO LEAVE FROM THE DAY, BUT MY UNDERSTANDING IS THAT WE ARE WAITING ON THE FACILITY TO ACCEPT THE PATIENT. PER MARISOL'S 0925 NOTE, HE FAXED UPDATE AND WAS WAITING FOR RETURN CALL. HE STATED THAT ROBERT HAD CALLED HIM AND TOLD HIM THAT HIS DAD BEEN ACCEPTED AND THAT THEY HAVE BEEN CALLING MARISOL ALL MORNING AND HIS VOICEMAIL HASN'T PICKED UP. I EXPLAINED TO THE SON THAT I WOULD FOLLOW UP AND SEE IF THE DOCTOR WILL DISCHARGE TODAY. HE HAS REQUESTED CALL BACK AT [phone]. I EXPLAINED I WOULD CALL @ 1151, CALL PLACED TO SPEAK WITH ROBERT, , OPTION #1, OPTION #1. RECEIVED HER VOICEMAIL. LEFT A REQUEST FOR HER TO CALL ME BACK TO CONFIRM THAT THE PATIENT HAS BEEN ACCEPTED BEFORE I CALL THE DOCTOR FOR ORDERS. EXPLAINED WHAT THE SON EXPLAINED TO ME. I HAVE REQUESTED A CALL BACK TO MARISOL'S PHONE OR MINE AT [phone]. I WILL WAIT FOR CALL BACK. IN THE MEANTIME, I WILL GO AHEAD AND CALL ANGELICA AND EXPLAINE TO HER THE ABOVE AND SEE IF SHE WANTS TO PUT IN DISCHARGE ORDERS OR WAIT FOR MY RETURN CALL. DCP- Discharge Planning Updated by [id number]: Jakob Carr on 07/08/18 8:[address] Patient Name: VARUN WEEKS Encounter No: [id number] : 1950 Primary Insurance: MEDICARE A & B Anticipated DC Date: Planned Disposition: Longterm Facility External Planned Provider: [facility] [place], MEDICARE REHAB BED DCP follow-up note: CM CALLED [facility], , LEFT VOICE MAIL FOR ROBERT ASKING FOR ADMISSION DETERMINATION AND NOTIFYING THAT THE DOCTOR IS READY TO DISCHARGE PT TO REHAB. CM FAXED REFERRAL UPDATE TO [phone]. CM WAITING ADMISSION DETERMINATIONS FROM [facility] IN [place]. F[facility] PLANS TO TRANSPORT TO REHAB IF ACCEPTED. Jakob Carr CASE MANAGEMENT DCP- Discharge Planning Updated by [id number]: Jakob Carr on 07/05/18 10:[address] Patient Name: VARUN WEEKS Encounter No: [id number] : 1950 Primary Insurance: MEDICARE A & B Anticipated DC Date: Planned Disposition: Longterm Facility External Planned Provider: [facility] [place], MEDICARE REHAB BED DCP follow-up note: CM RECEIVED CALL FROM SHIRA WEEKS - SON, , PLACEMENT UPDATE PROVIDED. FAMILY STILL PLANS TO TRANSPORT TO REHAB FROM HOSPITAL. CM CALLED [facility], , SPOKE TO JACQUELYN WHO INFORMED CM THEY CANNOT ACCEPT PT THEY HAVE NO MALE REHAB BED AVAILABLE. CM CALLED [facility], , SPOKE TO ROBERT WHO RECEIVED REFERRAL AND WILL CALL PT'S SON TODAY TO DISCUSS POSSIBLE ACCEPTANCE FOR REHAB AND WILL CALL CM WITH DETERMINATION. CM FAXED REFERRAL TO [phone]. CM WAITING ADMISSION DETERMINATIONS FROM [facility] IN [place]. Jakob Carr CASE MANAGEMENT DCP- Discharge Planning Updated by [id number]: Jakob Carr on 07/04/18 7:[address] Patient Name: VARUN WEEKS Encounter No: [id number] : 1950 Primary Insurance: MEDICARE A & B Anticipated DC Date: Planned Disposition: Longterm Facility External Planned Provider: [facility], MEDICARE REHAB BED DCP follow-up note: CM CALLED [facility], , SPOKE TO JACQUELYN AND PROVIDED REFERRAL INFORMATION; CM FAXED REFERRAL TO [phone]. CM CALLED [facility], , PROVIDED REFERRAL INFORMATION; CM FAXED REFERRAL TO [phone]. CM WAITING ADMISSION DETERMINATIONS FROM [facility] AND [facility] IN [place]. Jakob Carr CASE MANAGEMENT DCP- Discharge Planning Updated by [email or web address]: Jakob Carr on 07/03/18 3:[address] Patient Name: VARUN WEEKS Encounter No: [id number] : 1950 Primary Insurance: MEDICARE A & B Anticipated DC Date: Planned Disposition: Longterm Facility External Planned Provider: [facility] [place], MEDICARE REHAB BED DCP follow-up note: CM RECEIVED ORDER FOR INPATIENT REHAB PRESCREEN. CM SPOKE TO PT IN ROOM WHO INFORMED CM THAT HIS EX WANTS HIM CLOSER TO HER AND THAT CM SHOULD CALL HIS SON, SHIRA, AND DO WHAT SHIRA DIRECTS. IMPORTANT MESSAGE FROM MEDICARE PROVIDED AND EXPLAINED. CM CALLED ANGELICA WEEKS, ; THIS NUMBER BELONGS TO PATIENT, NOT HIS EX . CM CALLED SHIRA WEEKS, , WHO INFORMED CM THAT THE PLAN IS FOR PT TO GO CLOSER TO [place] SO THAT ANGELICA WEEKS CAN CHECK AND ASSIST WITH PT'S NEEDS. SHIRA WILL OBTAIN SHAHRAM PINEDA AND HAVE HER CALL CM WITH FACILITY CHOICES. SHIRA CALLED CM AT ABOUT 1545 HOURS, INFORMED CM THAT THE TWO FACILITY CHOICES ARE [facility] AND [facility]. CHOICE FORM COMPLETED. CM NOTIFIED BIANKA OF INPATIENT REHAB OF PT AND FAMILY DECISION FOR [facility] REHAB CLOSER TO FAMILY. CM TO SEND REFERRALS TO [facility] SOON POSSIBLE. Jakob Carr, JAKOB CARR, CASE MANAGEMENT DCP- Discharge Planning Updated by [email or web address]: Abena Marquez on 06/25/18 6:[address] Patient Name: VARUN WEEKS Admission Status: ER Accout number: [id number] Admission Date: 06-25-2018 : 1950 Admission Diagnosis: Attending: DEANNE, Current LOS: 1 Anticipated DC Date: Planned Disposition: Home Primary Insurance: MEDICARE A & B Discharge Planning Comments:CM met with patient and ex- (Angelica) at bedside. Patient states he lives at home alone. He plans on returning to his home upon discharge. He states he feels safe at his home. He states he will have family drive him home upon discharge. Angelica states that he may need to stay with her upon discharge and the patient is currently not agreeing. He denies any discharge needs at this time. CM will continue to follow and assist as needed with discharge planning / needs. Telephone Lineworker: Abena BLOOD - Discharge Planning Initial Assessment Updated by [email or web address]: Jakob Carr on 07/03/18 4:26 pm * Is the patient Alert and Oriented? Yes * How many steps to enter\exit or inside your home? * PCP NO PCP * Pharmacy [facility] [place] * Preadmission Environment Home Alone * ADLs Independent * Equipment Walker * Other Equipment CANE * List name and contact numbers for known caregivers / representatives who currently or will assist patient after discharge: ANGELICA WEEKS- EX- [phone] SHIRA WEEKS - SON, * Verbal permission to speak to the caregivers and representatives has been obtained from the patient. Yes * Community resources currently utilized None * Additional services required to return to the preadmission environment? No * Can the patient safely return to the preadmission environment? Yes * Has this patient been hospitalized within the prior 30 days at any hospital? No Coverage Notice Reviewer: [id number] Berkley Carr Notice Issued Date-Time: 07/03/2018 11:00 Notice Type: IM Discharge Notice Notice Delivered To: Patient Relationship to Patient: Landscaper Name: Delivery Method: HAND - Hand Delivered Sarah Days: Prior Verbal Notification: Recipient Understood Notice: Yes Recipient Signature: Med Rec Note Co-signed by Attending: Coverage Notice Comment: Reviewer: [id number] Carr Notice Issued Date-Time: 07/03/2018 15:45 Notice Type: IM Discharge Notice Notice Delivered To: Family Member Relationship to Patient: Son Landscaper Name: SHIRA WEEKS Delivery Method: HAND - Hand Delivered Sarah Days: Prior Verbal Notification: Recipient Understood Notice: Yes Recipient Signature: Med Rec Note Co-signed by Attending: Coverage Notice Comment: [facility] Last DP export: 07/08/18 10:59 a Patient Name: VARUN WEEKS Page 17122 at 1207 All edits/amendments must be made on the electronic document DICTATION DATE: 07/08/181205 REPAIRER FINISHED METAL: ELODIA 07/08/181205 RPT#: [id number] DC DATE: STATUS: ADM IN [facility] [address] [place] [address] END OF REPORT
--- NOTE | 2018-07-08 13:12 | MORECARE ---
CASE MANAGEMENT DISCHARGE SUMMARY PATIENT: VARUN WEEKS UNIT: [id number] ADM DATE: 06/25/18 AGE: 67 : 51 SEX: M ROOM/BED: D.2105 AUTHOR: ESA,DOC PHYSICIAN: REFERRING PHYSICIAN: SHANTHI ALICEA MD DATE OF SERVICE: 07/08/18 Discharge Plan Patient Name: VARUN WEEKS Facility: [facility]:[place] : 1950 Planned Disposition: Nursing Home Facility Anticipated Discharge Date: Discharge Date: Expected LOS: Initial Reviewer: [id number] Initial Review Date: 06/25/2018 Generated: 07/08/18 2:11 pm Comments DCP- Discharge Planning Updated by [email or web address]: Juan Ayala on 07/08/18 12:[address] @1230 RECEIVED A CALL BACK FROM ROBERT WITH [facility] ([phone], OPTION #1, OPTION#1). SHE STATED THAT THEY ARE GOING TO TAKE THE PATIENT, BUT QUESTIONED WHAT WAS GOING TO BE DONE ABOUT THE FEVER. I EXPLAINED THAT THEY GOT A UA WHICH WAS +, AND OUR FIELD ARTILLERY SENIOR SERGEANT WAS TALKING TO THE DOCTOR ABOUT THIS. SHE ASKED ABOUT THE CXR AND I READ HER THE RESULTS OF IT AND THE PREVIOUS CXR. SHE PLACED ME ON HOLD AND THEN CAME BACK TO SAY THEY WOULD ACCEPT THE PATIENT AND QUESTIONED ABOUT WHAT ANTIBIOTICS THE PATIENT WAS ON FOR THE UTI. I EXPLAINED THAT THE RESULTS WERE NEW AND NOTHING HAD BEEN ORDERED YET. SHE HAS REQUESTED THAT SOMETHING BE STARTED BEFORE WE DISCHARGE, AND BECAUSE IT WAS SO LATE IN THE DAY AND THEY WERE 3.5 HOURS AWAY AND THEIR ADMIT NURSES LEAVE AT 1500, COULD WE PLEASE PLAN FOR DISCHARGE IN THE AM. I EXPLAINED I WOULD RELAY THIS TO THE FIELD ARTILLERY SENIOR SERGEANT AND HIS SON WELL, SINCE THEY ARE TRANSPORTING HIM UP THERE. @1241, I SPOKE WITH ANGELICA, WHO STATED THAT AM DISCHARGE WOULD BE FINE. @1243 I SPOKE WITH THE PATIENTS SON, SHIRA. HE STATED THAT THE AM DISCHARGE IS OK AND HE WOULD BE HERE AROUND 0900. HE HAS REQUESTED THAT THE PATIENT BE PUT IN AN ADULT BRIEF SINCE THE RIDE IS SO LONG, AND I EXPLAINED I WOULD LET HIS BEDSIDE NURSE KNOW, SO THAT THEY COULD PASS IT ALONG IN REPORT. (THIS WAS RELAYED TO JUAN, RN). DCP- Discharge Planning Updated by [id number]: Juan Ayala on 07/08/18 11:[address] I JUST SPOKE WITH ANGELICA BARRETT APN. SHE HAS STATED WITH THE FEVER, SHE JUST WANTED TO RUN IT BY DR VANG BEFORE DISCHARGING THE PATINET. I WILL WAIT ON BOTH HER AND ROBERT TO CALL BACK. DCP- Discharge Planning Updated by [email or web address]: Juan Ayala on 07/08/18 10:[address] @ 1145 RECEIVED A CALL FROM SHIRA WEEKS WANTING TO KNOW WHAT THE HOLD UP WAS IN DISCHARGING HIS DAD TO THE NURSING FACILITY. I EXPLAINED THAT MARISOL HAD TO LEAVE FROM THE DAY, BUT MY UNDERSTANDING IS THAT WE ARE WAITING ON THE FACILITY TO ACCEPT THE PATIENT. PER MARISOL'S 924 NOTE, HE FAXED UPDATE AND WAS WAITING FOR RETURN CALL. HE STATED THAT ROBERT HAD CALLED HIM AND TOLD HIM THAT HIS DAD BEEN ACCEPTED AND THAT THEY HAVE BEEN CALLING MARISOL ALL MORNING AND HIS VOICEMAIL HASN'T PICKED UP. I EXPLAINED TO THE SON THAT I WOULD FOLLOW UP AND SEE IF THE DOCTOR WILL DISCHARGE TODAY. HE HAS REQUESTED CALL BACK AT [phone]. I EXPLAINED I WOULD CALL @ 1151, CALL PLACED TO SPEAK WITH ROBERT, , OPTION #1, OPTION #1. RECEIVED HER VOICEMAIL. LEFT A REQUEST FOR HER TO CALL ME BACK TO CONFIRM THAT THE PATIENT HAS BEEN ACCEPTED BEFORE I CALL THE DOCTOR FOR ORDERS. EXPLAINED WHAT THE SON EXPLAINED TO ME. I HAVE REQUESTED A CALL BACK TO MARISOL'S PHONE OR MINE AT [phone]. I WILL WAIT FOR CALL BACK. IN THE MEANTIME, I WILL GO AHEAD AND CALL ANGELICA AND EXPLAINE TO HER THE ABOVE AND SEE IF SHE WANTS TO PUT IN DISCHARGE ORDERS OR WAIT FOR MY RETURN CALL. DCP- Discharge Planning Updated by [id number]: Jakob Carr on 07/08/18 8:[address] Patient Name: VARUN WEEKS Encounter No: [id number] : 1950 Primary Insurance: MEDICARE A & B Anticipated DC Date: Planned Disposition: Nursing Home Facility External Planned Provider: [facility], MEDICARE REHAB BED DCP follow-up note: [facility] CALLED [facility], , LEFT VOICE MAIL FOR ROBERT ASKING FOR ADMISSION DETERMINATION AND NOTIFYING THAT THE DOCTOR IS READY TO DISCHARGE PT TO REHAB. CM FAXED REFERRAL UPDATE TO [phone]. CM WAITING ADMISSION DETERMINATIONS FROM [facility] IN [place]. [facility] PLANS TO TRANSPORT TO REHAB IF ACCEPTED. DEBORAH Emerson DCP- Discharge Planning Updated by [id number]: Jakob Carr on 07/05/18 10:[address] Patient Name: VARUN WEEKS Encounter No: [id number] : 1950 Primary Insurance: MEDICARE A & B Anticipated DC Date: Planned Disposition: Nursing Home Facility External Planned Provider: [facility] [place], MEDICARE REHAB BED DCP follow-up note: CM RECEIVED CALL FROM SHIRA WEEKS - SON, , PLACEMENT UPDATE PROVIDED. FAMILY STILL PLANS TO TRANSPORT TO REHAB FROM HOSPITAL. CM CALLED [facility], , SPOKE TO JACQUELYN WHO INFORMED CM THEY CANNOT ACCEPT PT THEY HAVE NO MALE REHAB BED AVAILABLE. CM CALLED [facility], , SPOKE TO ROBERT WHO RECEIVED REFERRAL AND WILL CALL PT'S SON TODAY TO DISCUSS POSSIBLE ACCEPTANCE FOR REHAB AND WILL CALL CM WITH DETERMINATION. CM FAXED REFERRAL TO [phone]. CM WAITING ADMISSION DETERMINATIONS FROM [facility] IN [place]. DEBORAH Emerson DCP- Discharge Planning Updated by [id number]: Jakob Carr on 07/04/18 7:[address] Patient Name: VARUN WEEKS Encounter No: [id number] : 1950 Primary Insurance: MEDICARE A & B Anticipated DC Date: Planned Disposition: Nursing Home Facility External Planned Provider: [facility], MEDICARE REHAB BED DCP follow-up note: CM CALLED [facility], , SPOKE TO JACQUELYN AND PROVIDED REFERRAL INFORMATION; CM FAXED REFERRAL TO [phone]. CM CALLED [facility], , PROVIDED REFERRAL INFORMATION; CM FAXED REFERRAL TO [phone]. CM WAITING ADMISSION DETERMINATIONS FROM [facility] AND [facility] IN [place]. DEBORAH Emerson MANAGEMENT DCP- Discharge Planning Updated by [id number]: Jakob Carr on 07/03/18 3:[address] Patient Name: VARUN WEEKS Encounter No: [id number] : 1950 Primary Insurance: MEDICARE A & B Anticipated DC Date: Planned Disposition: Nursing Home Facility External Planned Provider: [facility] IN [place], MEDICARE REHAB BED DCP follow-up note: CM RECEIVED ORDER FOR INPATIENT REHAB PRESCREEN. CM SPOKE TO PT IN ROOM WHO INFORMED CM THAT HIS EX WANTS HIM CLOSER TO HER AND THAT CM SHOULD CALL HIS SON, SHIRA, AND DO WHAT SHIRA DIRECTS. IMPORTANT MESSAGE FROM MEDICARE PROVIDED AND EXPLAINED. CM CALLED ANGELICA WEEKS, ; THIS NUMBER BELONGS TO PATIENT, NOT HIS EX . CM CALLED SHIRA WEEKS, , WHO INFORMED CM THAT THE PLAN IS FOR PT TO GO CLOSER TO [place] SO THAT ANGELICA WEEKS CAN CHECK AND ASSIST WITH PT'S NEEDS. SHIRA WILL OBTAIN SHAHRAM PINEDA AND HAVE HER CALL CM WITH FACILITY CHOICES. SHIRA CALLED CM AT ABOUT 1545 HOURS, INFORMED CM THAT THE TWO FACILITY CHOICES ARE [facility] AND [facility]. CHOICE FORM COMPLETED. CM NOTIFIED BIANKA OF INPATIENT REHAB OF PT AND FAMILY DECISION FOR [facility] CLOSER TO FAMILY. CM TO SEND REFERRALS TO [facility] AND REHAB SOON POSSIBLE. Jakob Carr, JAKOB CARR, CASE MANAGEMENT DCP- Discharge Planning Updated by [id number]: Abena Marquez on 06/25/18 6:[address] Patient Name: VARUN WEEKS Admission Status: ER Accout number: [id number] Admission Date: 06-25-2018 : 1950 Admission Diagnosis: Attending: DEANNE, Current LOS: 1 Anticipated DC Date: Planned Disposition: Home Primary Insurance: MEDICARE A & B Discharge Planning Comments:CM met with patient and ex- (Angelica) at bedside. Patient states he lives at home alone. He plans on returning to his home upon discharge. He states he feels safe at his home. He states he will have family drive him home upon discharge. Angelica states that he may need to stay with her upon discharge and the patient is currently not agreeing. He denies any discharge needs at this time. CM will continue to follow and assist as needed with discharge planning / needs. Data Quality Consultant: Abena BLOOD - Discharge Planning Initial Assessment Updated by [email or web address]: Jakob Carr on 07/03/18 4:26 pm * Is the patient Alert and Oriented? Yes * How many steps to enter\exit or inside your home? * PCP NO PCP * Pharmacy [facility] [place] * Preadmission Environment Home Alone * ADLs Independent * Equipment Walker * Other Equipment CANE * List name and contact numbers for known caregivers / representatives who currently or will assist patient after discharge: ANGELICA WEEKS- EX- [phone] SHIRA WEEKS - SON, * Verbal permission to speak to the caregivers and representatives has been obtained from the patient. Yes * Community resources currently utilized None * Additional services required to return to the preadmission environment? No * Can the patient safely return to the preadmission environment? Yes * Has this patient been hospitalized within the prior 30 days at any hospital? No Coverage Notice Reviewer: IVELISSE Carr Notice Issued Date-Time: 07/03/2018 11:00 Notice Type: IM Discharge Notice Notice Delivered To: Patient Relationship to Patient: Attacher Name: Delivery Method: HAND - Hand Delivered Sarah Days: Prior Verbal Notification: Recipient Understood Notice: Yes Recipient Signature: Med Rec Note Co-signed by Attending: Coverage Notice Comment: Reviewer: IVELISSE Carr Notice Issued Date-Time: 07/03/2018 15:45 Notice Type: IM Discharge Notice Notice Delivered To: Family Member Relationship to Patient: Son Attacher Name: SHIRA WEEKS Delivery Method: HAND - Hand Delivered Sarah Days: Prior Verbal Notification: Recipient Understood Notice: Yes Recipient Signature: Med Rec Note Co-signed by Attending: Coverage Notice Comment: [facility] DP export: 07/08/18 11:07 a Patient Name: VARUN WEEKS Page 97799 at 1312 All edits/amendments must be made on the electronic document DICTATION DATE: 07/08/18 1311 TRAINING EXECUTIVE: ELODIA 07/08/18 1311 RPT#: [id number] DC DATE: STATUS: ADM IN [facility] [address] [place] [address] END OF REPORT
[2018-07-08 14:46] VITALS: BP 161/85
[2018-07-08 20:00] VITALS: BP 123/67
[2018-07-09 00:59] VITALS: BP 123/61
[2018-07-09 05:49] VITALS: BP 157/92
[2018-07-09 06:15] LABS: ALKALINE PHOSPHATASE 121 U/L (46-116); ALT (SGPT) 52 U/L (10-68); BILIRUBIN - TOTAL 0.93 mg/dL (0.2-1.3); CALC OSMOLALITY 284 mosm/kg (275-300); CALCIUM 8.2 mg/dL (8.5-10.1); CARBON DIOXIDE 24.2 mmol/L (21.0-32.0); CHLORIDE - SERUM 109 mmol/L (98-107); CREATININE - SERUM 0.7 mg/dL (0.6-1.3); GLUCOSE 86 mg/dL (74-106); POTASSIUM - SERUM 3.7 mmol/L (3.5-5.1); PROTEIN - SERUM 6.3 g/dL (6.4-8.2); SODIUM 144 mmol/L (136-145); eGFR NON AFRICAN AMERICAN > 90 mL/min (90-120)
[2018-07-09 06:23] LABS: UREA NITROGEN 10 mg/dL (7-18)
[2018-07-09 06:46] LABS: BASOPHILS 0.4 % (0-2); EOSINOPHILS 1.9 % (0-7); HEMATOCRIT 33.7 % (42.0-54.0); HEMOGLOBIN 11.4 g/dL (13.5-17.5); IMMATURE GRANULOCYTES 0.6 % (0-5); LYMPHOCYTES 14.4 % (15-50); MCH 32.5 pg (26.0-34.0); MCHC 33.8 g/dL (31.0-37.0); MEAN PLATELET VOLUME 10.9 fL (7.4-10.4); MONOCYTES 7.6 % (2-11); NEUTROPHILS 75.1 % (40-80); PLATELET COUNT 255 10x3/uL (130-400); RBC 3.51 10x6/uL (4.20-6.10); RDW 25.2 % (11.5-14.5); WBC 6.7 10x3/uL (4.8-10.8)
[2018-07-09] MEDS ORDERED: FLORAJEN3 CAPS460 MG PO (09:37)
[2018-07-09] MEDS ORDERED: CHRONULAC30 ML PO (09:37)
[2018-07-09] MEDS ORDERED: XIFAXAN550 MG PO (09:37)
[2018-07-09] MEDS ORDERED: Levaquin PO (09:37)
[2018-07-09] MEDS ORDERED: CARAFATE1 G PO (09:38)
[2018-07-09] MEDS ORDERED: PROTONIX40 MG PO (09:38)
[2018-07-09] MEDS ORDERED: LASIX40 MG PO (09:41)
[2018-07-09] MEDS ORDERED: K-DUR20 MEQ PO (09:45)
[2018-07-09 10:25] VITALS: BP 132/67
--- NOTE | 2018-07-09 11:21 | MORECARE ---
CASE MANAGEMENT DISCHARGE SUMMARY PATIENT: VARUN WEEKS UNIT: [id number] ADM DATE: 06/25/18 AGE: 67 : 51 SEX: M ROOM/BED: D.2105 AUTHOR: ESA,DOC PHYSICIAN: REFERRING PHYSICIAN: SHANTHI ALICEA MD DATE OF SERVICE: 07/09/18 Discharge Plan Patient Name: VARUN WEEKS Facility: [facility]:[place] : 1950 Planned Disposition: [facility] Facility Anticipated Discharge Date: 07/09/18 Discharge Date: 07/09/2018 Expected LOS: 14 Initial Reviewer: [id number] Initial Review Date: 06/25/2018 Generated: 07/09/18 12:20 pm Comments DCP- Discharge Planning Updated by [id number]: Mackenzie Ayala on 07/08/18 12:[address] @6152 RECEIVED A CALL BACK FROM ROBERT WITH [facility] ([phone], OPTION #1, OPTION#1). SHE STATED THAT THEY ARE GOING TO TAKE THE PATIENT, BUT QUESTIONED WHAT WAS GOING TO BE DONE ABOUT THE FEVER. I EXPLAINED THAT THEY GOT A UA WHICH WAS +, AND OUR CUPOLA CHARGER INSULATION WAS TALKING TO THE DOCTOR ABOUT THIS. SHE ASKED ABOUT THE CXR AND I READ HER THE RESULTS OF IT AND THE PREVIOUS CXR. SHE PLACED ME ON HOLD AND THEN CAME BACK TO SAY THEY WOULD ACCEPT THE PATIENT AND QUESTIONED ABOUT WHAT ANTIBIOTICS THE PATIENT WAS ON FOR THE UTI. I EXPLAINED THAT THE RESULTS WERE NEW AND NOTHING HAD BEEN ORDERED YET. SHE HAS REQUESTED THAT SOMETHING BE STARTED BEFORE WE DISCHARGE, AND BECAUSE IT WAS SO LATE IN THE DAY AND THEY WERE 3.5 HOURS AWAY AND THEIR ADMIT NURSES LEAVE AT 1500, COULD WE PLEASE PLAN FOR DISCHARGE IN THE AM. I EXPLAINED I WOULD RELAY THIS TO THE CUPOLA CHARGER INSULATION AND HIS SON WELL, SINCE THEY ARE TRANSPORTING HIM UP THERE. @1241, I SPOKE WITH ANGELICA, WHO STATED THAT AM DISCHARGE WOULD BE FINE. @1243 I SPOKE WITH THE PATIENTS SON, SHIRA. HE STATED THAT THE AM DISCHARGE IS OK AND HE WOULD BE HERE AROUND 0900. HE HAS REQUESTED THAT THE PATIENT BE PUT IN AN ADULT BRIEF SINCE THE RIDE IS SO LONG, AND I EXPLAINED I WOULD LET HIS BEDSIDE NURSE KNOW, SO THAT THEY COULD PASS IT ALONG IN REPORT. (THIS WAS RELAYED TO MARGUERITE MARTINEZ). DCP- Discharge Planning Updated by [id number]: Mackenzie Ayala on 07/08/18 11:[address] I JUST SPOKE WITH ANGELICA BARRETT APN. SHE HAS STATED WITH THE FEVER, SHE JUST WANTED TO RUN IT BY DR VANG BEFORE DISCHARGING THE PATINET. I WILL WAIT ON BOTH HER AND ROBERT TO CALL BACK. DCP- Discharge Planning Updated by [id number]: Mackenzie Ayala on 07/08/18 10:[address] @ 1145 RECEIVED A CALL FROM SHIRA WEEKS WANTING TO KNOW WHAT THE HOLD UP WAS IN DISCHARGING HIS DAD TO THE NURSING FACILITY. I EXPLAINED THAT MARISOL HAD TO LEAVE FROM THE DAY, BUT MY UNDERSTANDING IS THAT WE ARE WAITING ON THE FACILITY TO ACCEPT THE PATIENT. PER MARISOL'S 924 NOTE, HE FAXED UPDATE AND WAS WAITING FOR RETURN CALL. HE STATED THAT ROBERT HAD CALLED HIM AND TOLD HIM THAT HIS DAD BEEN ACCEPTED AND THAT THEY HAVE BEEN CALLING MARISOL ALL MORNING AND HIS VOICEMAIL HASN'T PICKED UP. I EXPLAINED TO THE SON THAT I WOULD FOLLOW UP AND SEE IF THE DOCTOR WILL DISCHARGE TODAY. HE HAS REQUESTED CALL BACK AT [phone]. I EXPLAINED I WOULD CALL @ 1151, CALL PLACED TO SPEAK WITH ROBERT, , OPTION #1, OPTION #1. RECEIVED HER VOICEMAIL. LEFT A REQUEST FOR HER TO CALL ME BACK TO CONFIRM THAT THE PATIENT HAS BEEN ACCEPTED BEFORE I CALL THE DOCTOR FOR ORDERS. EXPLAINED WHAT THE SON EXPLAINED TO ME. I HAVE REQUESTED A CALL BACK TO MARISOL'S PHONE OR MINE AT [phone]. I WILL WAIT FOR CALL BACK. IN THE MEANTIME, I WILL GO AHEAD AND CALL ANGELICA AND EXPLAINE TO HER THE ABOVE AND SEE IF SHE WANTS TO PUT IN DISCHARGE ORDERS OR WAIT FOR MY RETURN CALL. DCP- Discharge Planning Updated by [id number]: Jakob Carr on 07/08/18 8:[address] Patient Name: VARUN WEEKS Encounter No: [id number] : 1950 Primary Insurance: MEDICARE A & B Anticipated DC Date: Planned Disposition: [facility] Facility External Planned Provider: [facility], MEDICARE REHAB BED DCP follow-up note: [facility] CALLED [facility], , LEFT VOICE MAIL FOR ROBERT ASKING FOR ADMISSION DETERMINATION AND NOTIFYING THAT THE DOCTOR IS READY TO DISCHARGE PT TO REHAB. CM FAXED REFERRAL UPDATE TO [phone]. CM WAITING ADMISSION DETERMINATIONS FROM [facility] IN [place]. [facility] PLANS TO TRANSPORT TO REHAB IF ACCEPTED. DEBORAH Emerson DCP- Discharge Planning Updated by [id number]: Jakob Carr on 07/05/18 10:[address] Patient Name: VARUN WEEKS Encounter No: [id number] : 1950 Primary Insurance: MEDICARE A & B Anticipated DC Date: Planned Disposition: [facility] Facility External Planned Provider: [facility], MEDICARE REHAB BED DCP follow-up note: CM RECEIVED CALL FROM SHIRA WEEKS - SON, , PLACEMENT UPDATE PROVIDED. FAMILY STILL PLANS TO TRANSPORT TO REHAB FROM HOSPITAL. CM CALLED [facility], , SPOKE TO JACQUELYN WHO INFORMED CM THEY CANNOT ACCEPT PT THEY HAVE NO MALE REHAB BED AVAILABLE. CM CALLED [facility], , SPOKE TO ROBERT WHO RECEIVED REFERRAL AND WILL CALL PT'S SON TODAY TO DISCUSS POSSIBLE ACCEPTANCE FOR REHAB AND WILL CALL CM WITH DETERMINATION. CM FAXED REFERRAL TO [phone]. CM WAITING ADMISSION DETERMINATIONS FROM [facility] IN [place]. DEBORAH Emerson DCP- Discharge Planning Updated by [id number]: Jakob Carr on 07/04/18 7:[address] Patient Name: VARUN WEEKS Encounter No: [id number] : 1950 Primary Insurance: MEDICARE A & B Anticipated DC Date: Planned Disposition: [facility] Facility External Planned Provider: [facility], MEDICARE REHAB BED DCP follow-up note: CM CALLED [facility], , SPOKE TO JACQUELYN AND PROVIDED REFERRAL INFORMATION; CM FAXED REFERRAL TO [phone]. CM CALLED [facility], , PROVIDED REFERRAL INFORMATION; CM FAXED REFERRAL TO [phone]. CM WAITING ADMISSION DETERMINATIONS FROM [facility] AND [facility] IN [place]. Jakob [place], CASE MANAGEMENT DCP- Discharge Planning Updated by [id number]: Jakob Carr on 07/03/18 3:[address] Patient Name: VARUN WEEKS Encounter No: [id number] : 1950 Primary Insurance: MEDICARE A & B Anticipated DC Date: Planned Disposition: [facility] Facility External [facility] [place], MEDICARE REHAB BED DCP follow-up note: CM RECEIVED ORDER FOR INPATIENT REHAB PRESCREEN. CM SPOKE TO PT IN ROOM WHO INFORMED CM THAT HIS EX WANTS HIM CLOSER TO HER AND THAT CM SHOULD CALL HIS SON, SHIRA, AND DO WHAT SHIRA DIRECTS. IMPORTANT MESSAGE FROM MEDICARE PROVIDED AND EXPLAINED. CM CALLED ANGELICA WEEKS, ; THIS NUMBER BELONGS TO PATIENT, NOT HIS EX . CM CALLED SHIRA WEEKS, , WHO INFORMED CM THAT THE PLAN IS FOR PT TO GO CLOSER TO [place] SO THAT ANGELICA WEEKS CAN CHECK AND ASSIST WITH PT'S NEEDS. SHIRA WILL OBTAIN SHAHRAM PINEDA AND HAVE HER CALL CM WITH FACILITY CHOICES. SHIRA CALLED CM AT ABOUT 1545 HOURS, INFORMED CM THAT THE TWO FACILITY CHOICES ARE [facility]. CHOICE FORM COMPLETED. CM NOTIFIED BIANKA OF INPATIENT REHAB OF PT AND FAMILY DECISION FOR [facility] RE[facility]AB CLOSER TO FAMILY. CM TO SEND REFERRALS TO [facility] AND [facility] SOON POSSIBLE. Jakob Carr, JAKOB CARR, CASE MANAGEMENT DCP- Discharge Planning Updated by [id number]: Abena Marquez on 06/25/18 6:[address] Patient Name: VARUN WEEKS Admission Status: ER Accout number: [id number] Admission Date: 06-25-2018 : 1950 Admission Diagnosis: Attending: DEANNE, Current LOS: 1 Anticipated DC Date: Planned Disposition: Home Primary Insurance: MEDICARE A & B Discharge Planning Comments:CM met with patient and ex- (Angelica) at bedside. Patient states he lives at home alone. He plans on returning to his home upon discharge. He states he feels safe at his home. He states he will have family drive him home upon discharge. Angelica states that he may need to stay with her upon discharge and the patient is currently not agreeing. He denies any discharge needs at this time. CM will continue to follow and assist as needed with discharge planning / needs. Pump Assembler: Abena BLOOD - Discharge Planning Initial Assessment Updated by [email or web address]: Jakob Carr on 07/03/18 4:26 pm * Is the patient Alert and Oriented? Yes * How many steps to enter\exit or inside your home? * PCP NO PCP * Pharmacy [facility] [place] * Preadmission Environment Home Alone * ADLs Independent * Equipment Walker * Other Equipment CANE * List name and contact numbers for known caregivers / representatives who currently or will assist patient after discharge: ANGELICA WEEKS- EX- [phone] SHIRA WEEKS - SON, * Verbal permission to speak to the caregivers and representatives has been obtained from the patient. Yes * Community resources currently utilized None * Additional services required to return to the preadmission environment? No * Can the patient safely return to the preadmission environment? Yes * Has this patient been hospitalized within the prior 30 days at any hospital? No Coverage Notice Reviewer: IVELISSE - Jakob Carr Notice Issued Date-Time: 07/03/2018 11:00 Notice Type: IM Discharge Notice Notice Delivered To: Patient Relationship to Patient: Splitter Head Name: Delivery Method: HAND - Hand Delivered Sarah Days: Prior Verbal Notification: Recipient Understood Notice: Yes Recipient Signature: Med Rec Note Co-signed by Attending: Coverage Notice Comment: Reviewer: IVELISSE Carr Notice Issued Date-Time: 07/03/2018 15:45 Notice Type: IM Discharge Notice Notice Delivered To: Family Member Relationship to Patient: Son Splitter Head Name: SHIRA WEEKS Delivery Method: HAND - Hand Delivered Sarah Days: Prior Verbal Notification: Recipient Understood Notice: Yes Recipient Signature: Med Rec Note Co-signed by Attending: Coverage Notice Comment: [facility] Last DP export: 07/08/18 12:11 p Patient Name: VARUN WEEKS Page [id number] at 1121 All edits/amendments must be made on the electronic document DICTATION DATE: 07/09/18 1120 [facility] ATTENDANT: ELODIA 07/09/18 1120 RPT#: [id number] DC DATE:07/09/18 STATUS: DIS IN [facility] [address] [facility] [place] [address] END OF REPORT
--- NOTE | 2018-07-09 11:37 | MORECARE ---
CASE MANAGEMENT DISCHARGE SUMMARY PATIENT: VARUN WEEKS UNIT: [id number] ADM DATE: 06/25/18 AGE: 67 : 51 SEX: M ROOM/BED: D.2100 AUTHOR: ESA,DOC PHYSICIAN: REFERRING PHYSICIAN: SHANTHI ALICEA MD DATE OF SERVICE: 07/09/18 Discharge Plan Patient Name: VARUN WEEKS Facility: [facility]:[place] : 1950 Planned Disposition: [facility] Facility Anticipated Discharge Date: 07/09/18 Discharge Date: 07/09/2018 Expected LOS: 14 Initial Reviewer: [id number] Initial Review Date: 06/25/2018 Generated: 07/09/18 12:37 pm Comments DCP- Discharge Planning Updated by [id number]: Jakob Carr on 07/09/18 10:[address] Patient Name: VARUN WEEKS Encounter No: [id number] : 1950 Primary Insurance: MEDICARE A & B Anticipated DC Date: 07-09-2018 Planned Disposition: [facility] Facility External Planned Provider: [facility], MEDICARE REHAB BED DISCHARGE PLANNING NOTES: LATE ENTRY: PT'S FAMILY HERE TO REFINERY OPERATOR CRUDE UNIT PT FOR REHAB TRANSPORT TODAY. CM RECEIVED DISCHARGE INFORMATION; CM FAXED DISCHARGE INFORMATION TO [phone]. NURSE REPORT TO BE CALLED TO [facility], . FAMILY TO TRANSPORT. DEBORAH Emerson DCP- Discharge Planning Updated by [id number]: Mackenzie Ayala on 07/08/18 12:[address] @1235 RECEIVED A CALL BACK FROM ROBERT WITH [facility] ([phone], OPTION #1, OPTION#1). SHE STATED THAT THEY ARE GOING TO TAKE THE PATIENT, BUT QUESTIONED WHAT WAS GOING TO BE DONE ABOUT THE FEVER. I EXPLAINED THAT THEY GOT A UA WHICH WAS +, AND OUR SQL SSRS SSIS DEVELOPER WAS TALKING TO THE DOCTOR ABOUT THIS. SHE ASKED ABOUT THE CXR AND I READ HER THE RESULTS OF IT AND THE PREVIOUS CXR. SHE PLACED ME ON HOLD AND THEN CAME BACK TO SAY THEY WOULD ACCEPT THE PATIENT AND QUESTIONED ABOUT WHAT ANTIBIOTICS THE PATIENT WAS ON FOR THE UTI. I EXPLAINED THAT THE RESULTS WERE NEW AND NOTHING HAD BEEN ORDERED YET. SHE HAS REQUESTED THAT SOMETHING BE STARTED BEFORE WE DISCHARGE, AND BECAUSE IT WAS SO LATE IN THE DAY AND THEY WERE 3.5 HOURS AWAY AND THEIR ADMIT NURSES LEAVE AT 1500, COULD WE PLEASE PLAN FOR DISCHARGE IN THE AM. I EXPLAINED I WOULD RELAY THIS TO THE SQL SSRS SSIS DEVELOPER AND HIS SON WELL, SINCE THEY ARE TRANSPORTING HIM UP THERE. @1241, I SPOKE WITH ANGELICA, WHO STATED THAT AM DISCHARGE WOULD BE FINE. @1243 I SPOKE WITH THE PATIENTS SON, SHIRA. HE STATED THAT THE AM DISCHARGE IS OK AND HE WOULD BE HERE AROUND 0900. HE HAS REQUESTED THAT THE PATIENT BE PUT IN AN ADULT BRIEF SINCE THE RIDE IS SO LONG, AND I EXPLAINED I WOULD LET HIS BEDSIDE NURSE KNOW, SO THAT THEY COULD PASS IT ALONG IN REPORT. (THIS WAS RELAYED TO MARGUERITE MARTINEZ). DCP- Discharge Planning Updated by [id number]: Mackenzie Ayala on 07/08/18 11:[address] I JUST SPOKE WITH ANGELICA BARRETT APN. SHE HAS STATED WITH THE FEVER, SHE JUST WANTED TO RUN IT BY DR VANG BEFORE DISCHARGING THE PATINET. I WILL WAIT ON BOTH HER AND ROBERT TO CALL BACK. DCP- Discharge Planning Updated by [id number]: Mackenzie Ayala on 07/08/18 10:[address] @ 1145 RECEIVED A CALL FROM SHIRA WEEKS WANTING TO KNOW WHAT THE HOLD UP WAS IN DISCHARGING HIS DAD TO THE NURSING FACILITY. I EXPLAINED THAT MARISOL HAD TO LEAVE FROM THE DAY, BUT MY UNDERSTANDING IS THAT WE ARE WAITING ON THE FACILITY TO ACCEPT THE PATIENT. PER MARISOL'S 09 NOTE, HE FAXED UPDATE AND WAS WAITING FOR RETURN CALL. HE STATED THAT ROBERT HAD CALLED HIM AND TOLD HIM THAT HIS DAD BEEN ACCEPTED AND THAT THEY HAVE BEEN CALLING MARISOL ALL MORNING AND HIS VOICEMAIL HASN'T PICKED UP. I EXPLAINED TO THE SON THAT I WOULD FOLLOW UP AND SEE IF THE DOCTOR WILL DISCHARGE TODAY. HE HAS REQUESTED CALL BACK AT [phone]. I EXPLAINED I WOULD CALL @ 1154, CALL PLACED TO SPEAK WITH ROBERT, , OPTION #1, OPTION #1. RECEIVED HER VOICEMAIL. LEFT A REQUEST FOR HER TO CALL ME BACK TO CONFIRM THAT THE PATIENT HAS BEEN ACCEPTED BEFORE I CALL THE DOCTOR FOR ORDERS. EXPLAINED WHAT THE SON EXPLAINED TO ME. I HAVE REQUESTED A CALL BACK TO MARISOL'S PHONE OR MINE AT [phone]. I WILL WAIT FOR CALL BACK. IN THE MEANTIME, I WILL GO AHEAD AND CALL ANGELICA AND EXPLAINE TO HER THE ABOVE AND SEE IF SHE WANTS TO PUT IN DISCHARGE ORDERS OR WAIT FOR MY RETURN CALL. DCP- Discharge Planning Updated by [id number]: Jakob Carr on 07/08/18 8:[address] Patient Name: VARUN WEEKS Encounter No: [id number] : 1950 Primary Insurance: MEDICARE A & B Anticipated DC Date: Planned Disposition: [facility] Facility External Planned Provider: [facility] [place], MEDICARE REHAB BED DCP follow-up note: CM CALLED [facility], , LEFT VOICE MAIL FOR ROBERT ASKING FOR ADMISSION DETERMINATION AND NOTIFYING THAT THE DOCTOR IS READY TO DISCHARGE PT TO REHAB. CM FAXED REFERRAL UPDATE TO [phone]. CM WAITING ADMISSION DETERMINATIONS FROM [facility] IN [place]. [facility] PLANS TO TRANSPORT TO REHAB IF ACCEPTED. Jakob Carr CASE MANAGEMENT DCP- Discharge Planning Updated by [id number]: Jakob Carr on 07/05/18 10:[address] Patient Name: VARUN WEEKS Encounter No: [id number] : 1950 Primary Insurance: MEDICARE A & B Anticipated DC Date: Planned Disposition: [facility] Facility External Planned Provider: [facility] [place], MEDICARE REHAB BED DCP follow-up note: CM RECEIVED CALL FROM SHIRA WEEKS - SON, , PLACEMENT UPDATE PROVIDED. FAMILY STILL PLANS TO TRANSPORT TO REHAB FROM HOSPITAL. CM CALLED [facility], , SPOKE TO JACQUELYN WHO INFORMED CM THEY CANNOT ACCEPT PT THEY HAVE NO MALE REHAB BED AVAILABLE. CM CALLED [facility], , SPOKE TO ROBERT WHO RECEIVED REFERRAL AND WILL CALL PT'S SON TODAY TO DISCUSS POSSIBLE ACCEPTANCE FOR REHAB AND WILL CALL CM WITH DETERMINATION. CM FAXED REFERRAL TO [phone]. CM WAITING ADMISSION DETERMINATIONS FROM [facility] IN [place]. Jakob Carr CASE MANAGEMENT DCP- Discharge Planning Updated by [id number]: Jakob Carr on 07/04/18 7:[address] Patient Name: VARUN WEEKS Encounter No: [id number] : 1950 Primary Insurance: MEDICARE A & B Anticipated DC Date: Planned Disposition: [facility] Facility External Planned Provider: [facility], MEDICARE REHAB BED DCP follow-up note: CM CALLED [facility], , SPOKE TO JACQUELYN AND PROVIDED REFERRAL INFORMATION; CM FAXED REFERRAL TO [phone]. CM CALLED [facility], , PROVIDED REFERRAL INFORMATION; CM FAXED REFERRAL TO [phone]. CM WAITING ADMISS[facility] DET[facility]MINATIONS [facility] [place]. Jakob Carr, CASE MANAGEMENT DCP- Discharge Planning Updated by [id number]: Jakob Carr on 07/03/18 3:[address] Patient Name: VARUN WEEKS Encounter No: [id number] : 1950 Primary Insurance: MEDICARE A & B Anticipated DC Date: Planned Disposition: [facility] Facility External Planned Provider: [facility] IN [place], MEDICARE REHAB BED DCP follow-up note: CM RECEIVED ORDER FOR INPATIENT REHAB PRESCREEN. CM SPOKE TO PT IN ROOM WHO INFORMED CM THAT HIS EX WANTS HIM CLOSER TO HER AND THAT CM SHOULD CALL HIS SON, SHIRA, AND DO WHAT SHIRA DIRECTS. IMPORTANT MESSAGE FROM MEDICARE PROVIDED AND EXPLAINED. CM CALLED ANGELICA WEEKS, ; THIS NUMBER BELONGS TO PATIENT, NOT HIS EX . CM CALLED SHIRA RAMIREZTON, , WHO INFORMED CM THAT THE PLAN IS FOR PT TO GO CLOSER TO [place] SO THAT ANGELICA WEEKS CAN CHECK AND ASSIST WITH PT'S NEEDS. SHIRA WILL OBTAIN SHAHRAM PINEDA AND HAVE HER CALL CM WITH FACILITY CHOICES. SHIRA CALLED CM AT ABOUT 1545 HOURS, INFORMED CM THAT THE TWO FACILITY CHOICES ARE [facility] AND [facility]. CHOICE FORM COMPLETED. CM NOTIFIED BIANKA OF INPATIENT REHAB OF PT AND FAMILY DECISION FOR [facility] REHAB CLOSER TO FAMILY. CM TO SEND REFERRALS TO [facility] AND [facility] AND REHAB SOON POSSIBLE. Jakob Carr, JAKOB CARR, CASE MANAGEMENT DCP- Discharge Planning Updated by [id number]: Abena Marquez on 06/25/18 6:[address] Patient Name: VARUN WEEKS Admission Status: ER Accout number: [id number] Admission Date: 06-25-2018 : 1950 Admission Diagnosis: Attending: DEANNE, Current LOS: 1 Anticipated DC Date: Planned Disposition: Home Primary Insurance: MEDICARE A & B Discharge Planning Comments:CM met with patient and ex- (Angelica) at bedside. Patient states he lives at home alone. He plans on returning to his home upon discharge. He states he feels safe at his home. He states he will have family drive him home upon discharge. Angelica states that he may need to stay with her upon discharge and the patient is currently not agreeing. He denies any discharge needs at this time. CM will continue to follow and assist as needed with discharge planning / needs. Tone Cabinet Assembler: Abena Alma DCPIA - Discharge Planning Initial Assessment Updated by [id number]: Jakob Carr on 07/03/18 4:26 pm * Is the patient Alert and Oriented? Yes * How many steps to enter\exit or inside your home? * PCP NO PCP * Pharmacy [facility] [place] * Preadmission Environment Home Alone * ADLs Independent * Equipment Walker * Other Equipment CANE * List name and contact numbers for known caregivers / representatives who currently or will assist patient after discharge: ANGELICA WEEKS- EX- [phone] SHIRA WEEKS - SON, * Verbal permission to speak to the caregivers and representatives has been obtained from the patient. Yes * Community resources currently utilized None * Additional services required to return to the preadmission environment? No * Can the patient safely return to the preadmission environment? Yes * Has this patient been hospitalized within the prior 30 days at any hospital? No Coverage Notice Reviewer: [id number] Carr Notice Issued Date-Time: 07/03/2018 11:00 Notice Type: IM Discharge Notice Notice Delivered To: Patient Relationship to Patient: Coater Carbon Paper Name: Delivery Method: HAND - Hand Delivered Sarah Days: Prior Verbal Notification: Recipient Understood Notice: Yes Recipient Signature: Med Rec Note Co-signed by Attending: Coverage Notice Comment: Reviewer: [id number] Carr Notice Issued Date-Time: 07/03/2018 15:45 Notice Type: IM Discharge Notice Notice Delivered To: Family Member Relationship to Patient: Son Coater [employer] Paper Name: SHIRA WEEKS Delivery Method: HAND - Hand Delivered Sarah Days: Prior Verbal Notification: Recipient Understood Notice: Yes Recipient Signature: Med Rec Note Co-signed by Attending: Coverage Notice Comment: [facility] Last DP export: 07/09/18 10:21 a Patient Name: VARUN WEEKS Page 50789 at 1137 All edits/amendments must be made on the electronic document DICTATION DATE: 07/09/18 1137 MIXING TANK OPERATOR: ELODIA 07/09/18 1137 RPT#: [id number] DC DATE:07/09/18 STATUS: DIS IN [facility] [address] [place] [address] END OF REPORT
== END 2018-07-09 11:00 | DRG 871 ==
LOC: D.ER 02:07 → D.M2 03:04 → D.ICU 03:04 → D.EDHOLD 03:04 → D.ICU 03:40 → D.M2 06-29 15:22
PROVIDERS: Family Medicine; Internal Medicine Gastroenterology; Internal Medicine Nephrology; ADMIT Family Medicine; ATTEND Family Medicine
PROC: 0DJ08ZZ Inspection of Upper Intestinal Tract, Via Natural or Artificial Opening Endoscopic (ICD-10-PCS; principal; 2018-06-26 17:00)
PROC: 05HC33Z Insertion of Infusion Device into Left Basilic Vein, Percutaneous Approach (ICD-10-PCS; 2018-07-01)
PROC: B54NZZA Ultrasonography of Left Upper Extremity Veins, Guidance (ICD-10-PCS; 2018-07-01)
DX: A41.9 Sepsis, unspecified organism (principal); E43 Unspecified severe protein-calorie malnutrition; J96.01 Acute respiratory failure with hypoxia; K29.81 Duodenitis with bleeding; I85.11 Secondary esophageal varices with bleeding; D62 Acute posthemorrhagic anemia; N17.9 Acute kidney failure, unspecified; M62.82 Rhabdomyolysis; K76.6 Portal hypertension; R74.8 Abnormal levels of other serum enzymes; F10.20 Alcohol dependence, uncomplicated; R16.0 Hepatomegaly, not elsewhere classified; K72.90 Hepatic failure, unspecified without coma; E87.6 Hypokalemia; I86.4 Gastric varices; K31.89 Other diseases of stomach and duodenum; K44.9 Diaphragmatic hernia without obstruction or gangrene; K70.30 Alcoholic cirrhosis of liver without ascites